=== PATIENT | male | born 1970 | race Caucasian/White ===

== ENCOUNTER 2023-12-03 09:02 | Emergency (ER) | payer OTHER ==
[2023-12-03] MEDS ORDERED: NITRO-BID 2% UD PACKETS ONE (09:04)
[2023-12-03] MEDS ORDERED: Furosemide 100mg/10 ml Vial ONE (09:04)
[2023-12-03] MEDS ORDERED: Zofran 4 MG/2 ML VIAL ONE (09:11)
[2023-12-03] MEDS: NITRO-BID 2% UD PACKETS TOP ONE (09:12)
[2023-12-03] MEDS ORDERED: DUONEB 0.5-3 MG/3 ml Neb IH ONE (09:13)
[2023-12-03] MEDS: Furosemide 100mg/10 ml Vial IV ONE (09:13)
[2023-12-03] MEDS: Zofran 4 MG/2 ML VIAL IV ONE (09:13)
[2023-12-03] MEDS: DUONEB 0.5-3 MG/3 ml Neb IH ONE (09:14)
[2023-12-03 09:36] VITALS: TEMP 96.2
--- NOTE | 2023-12-03 09:37 | XRAY ---
Indication: Short of breath. Comparison: None Portable apical lordotic chest demonstrates diffuse bilateral patchy interstitial alveolar opacities right greater than left with tiny bibasilar effusions. Heart not enlarged. Bony thorax intact with osteopenia and sternotomy wires.
[2023-12-03 09:39] LABS: A-aADO2 246; ABG POTASSIUM 4.9 (3.5-5.1); ABG SITE LEFT BRACHIAL; ARTERIAL BLOOD GAS BASE EXCESS -2.9 (-2.0-2.0); ARTERIAL BLOOD GAS FIO2 70 %; ARTERIAL BLOOD GAS PCO2 41 mmHg (35-45); ARTERIAL BLOOD GAS PO2 202 mmHg (75-100); ARTERIAL BLOOD GAS VENT MODE BiPAP; ARTERIAL BLOOD GAS pH 7.35 (7.35-7.45); BIPAP(E) 6; BIPAP(I) 14; CARBOXYHEMOGLOBIN 1.8 % THgb (0.0-6.9); HCO3- 22.6 (22-28); HGB O2 SAT 96.5 g/dF (94-100); Methhemoglobin 0.7 % (1.4-1.5); paO2 pAO1 0.45
[2023-12-03 09:39] LABS: Absolute Neutrophil Ct (ANC) 6.42 x10^3/uL (1.78-5.38); BASOPHIL % 0.8 % (0.2-1.2); Eosinophil % 5.9 % (0.8-7.0); Eosinophil (Absolute #) 0.73 x10^3/uL (0.04-0.54); Hematocrit 49.8 % (40.1-51.0); Hemoglobin 15.2 g/dL (13.7-17.5); IMMATURE GRAN # 0.08 x10^3u/L (0.001-0.031); IMMATURE GRAN % 0.6 % (0.001-0.429); Lymphocyte (Absolute #) 3.64 x10^3/uL (1.32-3.57); Lymphocytes % 29.6 % (21.8-53.1); Mean Cell Volume 81.8 fL (79.0-92.2); Mean Corpuscular Hgb Concent. 30.5 g/dL (32.3-36.5); Mean Platelet Volume 12.9 fL (9.4-12.4); Monocyte (Absolute #) 1.34 x10^3/uL (0.30-0.82); Monocytes % 10.9 % (5.3-12.2); Neutrophil % 52.2 % (34.0-67.9); Platelet Count 201 x10^3/uL (163-337); Red Blood Count 6.09 x10^6/uL (4.63-6.08); Red Cell Distribution Width 16.4 % (11.6-14.4); White Blood Count 12.3 x10^3/uL (4.23-9.07)
--- NOTE | 2023-12-03 10:00 | ERPHSYRPT ---
- History of Present Illness Time Seen by Provider: 12/03/23 09:03 Source: patient Exam Limitations: clinical condition Patient Subjective Stated Complaint: SOB Triage Nursing Assessment: Patient brought into ED per w/c and transferred to bed per self. Patient A+O X 3. Patient's skin flushed and diaphoretic. Patient complains of SOB. Patient has increased work of breathing and moist cough noted. Lungs coarse and crackles. Initial O2 noted to be 75% on room air. Patient denies pain or discomfort. Patient placed on non rebreather at 15 liters and brought O2 to 96%. RT at bedside and placed patient on bipap. Physician History: 53-year-old male with history of coronary artery disease status post CABG, congestive heart failure, diabetes mellitus, hypertension, hyperlipidemia presented in the ER with sudden severe shortness of breath started almost 10 minutes prior to arrival while he was driving. Patient reports having cough congestion off and on for last couple of weeks. Patient oxygen saturation was 75% on room air, placed on nonrebreather and improved and low 90s. Patient has coarse crackles all over especially on the right side. Patient denies any chest pain and reports having similar symptoms couple of times with flash pulmonary edema. Has bilateral lower extremity swelling despite taking Lasix. No fever or chills reported. Seems like patient has CHF exacerbation/flash pulmonary edema. Placed on BiPAP, Nitropaste and 60 of IV Lasix along with DuoNeb with some improvement. Allergies/Adverse Reactions: No Known Drug Allergies Allergy (Unverified 12/03/23 09:39) Home Medications: Aspirin EC 81 mg [Ecotrin 81 mg] 1 tab PO DAILY 12/03/23 [History] Atorvastatin Calcium [Lipitor 20MG Tablet] 1 tab PO HS 12/03/23 [History] Empagliflozin [Jardiance] 25 mg PO DAILY 12/03/23 [History] Furosemide 40 mg [Lasix 40 MG] 1 tab PO DAILY 12/03/23 [History] Metformin HCl [Metformin ER Osmotic] 1 tab PO BID 12/03/23 [History] Metoprolol Succinate 50 mg [Toprol Xl 50 MG] 1 tab PO DAILY 12/03/23 [History] Potassium Chloride [Klor-Con 10] 1 tab PO DAILY 12/03/23 [History] Sacubitril/Valsartan [Entresto 24 mg-26 mg Tablet] 1 tab PO BID 12/03/23 [History] Hx Influenza Vaccination/Date Given: Yes Hx Pneumococcal Vaccination/Date Given: No Immunizations Up to Date: Yes Travel Risk - International Travel Have you traveled outside of the country in past 3 weeks: No - Emerging Infectious Disease Are you exhibiting symptoms associated with any current EIDs: No - Review of Systems Constitutional: Fatigue, Weakness Eyes: No Symptoms Ears, Nose, & Throat: No Symptoms Respiratory: Cough, Dyspnea, Dyspnea on Exertion (BARRETT) Cardiac: Edema Abdominal/Gastrointestinal: No Symptoms Genitourinary Symptoms: No Symptoms Musculoskeletal: No Symptoms Skin: No Symptoms Neurological: No Symptoms Psychological: No Symptoms Endocrine: No Symptoms Hematologic/Lymphatic: No Symptoms Immunological/Allergic: No Symptoms - Past Medical History Pertinent Past Medical History: Yes Neurological History: No Pertinent History ENT History: No Pertinent History Cardiac History: High Cholesterol, Hypertension, Myocardial Infarction (HI) Respiratory History: No Pertinent History Endocrine Medical History: Diabetes Type II Musculoskeletal History: No Pertinent History GI Medical History: No Pertinent History History: No Pertinent History Psycho-Social History: No Pertinent History Male Reproductive Disorders: No Pertinent History - Past Surgical History Past Surgical History: Yes Neuro Surgical History: No Pertinent History Cardiac: CABG Respiratory: No Pertinent History Gastrointestinal: No Pertinent History Genitourinary: No Pertinent History Musculoskeletal: No Pertinent History Male Surgical History: No Pertinent History Other Surgical History: 5 heart bypass in 2022 - Social History Smoking Status: Never smoker Exposure to second hand smoke: No Drug Use: none - Social Determinants of Health Will the patient participate in the screening: Yes Do you worry about a steady place to live?: No Do you have any problems with any of the following?: No known problems In the past 12 months,have you had to go without utilities?: No Transportation Issues: No Has anyone in your support network made you feel unsafe?: No Have you or anyone in your house had to go without enough: No - Nursing Vital Signs Nursing Vital Signs: Initial Vital Signs Pulse Rate 111 H 12/03/23 09:02 Respiratory Rate 43 H 12/03/23 09:02 Blood Pressure 153/116 12/03/23 09:02 O2 Sat by Pulse Oximetry 99 12/03/23 09:02 Pain Scale Pain Intensity 0 - Physical Exam General Appearance: moderate distress Eye Exam: PERRL/EOMI Ears, Nose, Throat Exam: hearing grossly normal Neck Exam: normal inspection, non-tender, supple, full range of motion Respiratory Exam: respiratory distress, diminished breath sounds, accessory musc le use, crackles/rales, rhonchi Cardiovascular/Chest Exam: normal heart sounds, edema, tachycardia Abdominal/Gastrointestinal Exam: soft, normal bowel sounds, No tenderness Extremity Exam: non-tender Neurologic Exam: alert, oriented x 3, cooperative Skin Exam: normal color SpO2 Interpretation: hypoxic, O2 applied SpO2: 99 O2 Delivery: BiPap - Course EKG Interpreted by Me: RATE (110), Sinus Tach, NORMAL AXIS, NORMAL INTERVALS, Other (Mild ST depression in inferior/lateral leads with T wave inversions.) Ordered Tests: Medication Summary Discontinued Medications Generic Name Dose Route Start Last Admin Trade Name Freq PRN Reason Stop Dose Admin Albuterol/Ipratropium 3 ml 12/03/23 09:06 12/03/23 09:14 Ipratropium/Albuterol Sulfate 3 Ml Ampul.Neb IH 12/03/23 09:07 3 ml STAT ONE Administration Albuterol/Ipratropium Confirm 12/03/23 09:13 Ipratropium/Albuterol Sulfate 3 Ml Ampul.Neb Administered 12/03/23 09:14 Dose 3 ml IH .STK-MED ONE Furosemide Confirm 12/03/23 09:04 Furosemide 100 Mg/10 Ml Vial Administered 12/03/23 09:05 Dose 100 mg .ROUTE .STK-MED ONE Furosemide 60 mg 12/03/23 09:10 12/03/23 09:13 Furosemide 100 Mg/10 Ml Vial IV 12/03/23 09:11 60 mg STAT ONE Administration Ceftriaxone Sodium 2 gm in 100 mls @ 200 mls/hr 12/03/23 09:42 12/03/23 10:37 Rocephin 2 Gm/100 Ml Nacl IV 12/03/23 10:11 Infused STAT ONE Infusion Azithromycin 500 mg in 250 mls @ 250 mls/hr 12/03/23 09:42 12/03/23 11:19 Zithromax 500 Mg/ 250 Ml Nacl Premix IV 12/03/23 10:41 Infused STAT STA Infusion Azithromycin Confirm 12/03/23 10:04 Zithromax 500 Mg/ 250 Ml Nacl Premix Administered 12/03/23 10:05 Dose 500 mg in 250 mls @ ud IV .STK-MED ONE Ceftriaxone Sodium Confirm 12/03/23 10:04 Rocephin 2 Gm/100 Ml Nacl Administered 12/03/23 10:05 Dose 2 gm in 100 mls @ ud IV .STK-MED ONE Sodium Chloride 250 mls @ 250 mls/hr 12/03/23 11:30 12/03/23 11:45 Sodium Chloride 0.9% 250 Ml IV 12/03/23 12:29 250 mls/hr .Q1H [place] Administration Sodium Chloride Confirm 12/03/23 11:44 Sodium Chloride 0.9% 250 Ml Administered 12/03/23 11:45 Dose 250 mls @ IV .STK-MED ONE Nitroglycerin Confirm 12/03/23 09:04 Nitroglycerin 1 Gm Packet Administered 12/03/23 09:05 Dose 1 gm .ROUTE .STK-MED ONE Nitroglycerin 1 gm 12/03/23 09:10 12/03/23 09:12 Nitroglycerin 1 Gm Packet TOP 12/03/23 09:11 1 gm STAT ONE Administration Ondansetron HCl Confirm 12/03/23 09:11 Ondansetron Hcl 4 Mg/2 Ml Vial Administered 12/03/23 09:12 Dose 4 mg .ROUTE .STK-MED ONE Ondansetron HCl 4 mg 12/03/23 09:10 12/03/23 09:13 Ondansetron Hcl 4 Mg/2 Ml Vial IV 12/03/23 09:11 4 mg STAT ONE Administration Lab/Rad Data: Laboratory Result Diagrams 12/03/23 09:20 12/03/23 09:20 Laboratory Results 12/03/23 12/03/23 12/03/23 Range/Units 09:30 09:25 09:25 WBC (4.23-9.07) x10^3/uL RBC (4.63-6.08) x10^6/uL Hgb (13.7-17.5) g/dL Hct (40.1-51.0) % MCV (79.0-92.2) fL MCH (25.7-32.2) pg MCHC (32.3-36.5) g/dL RDW (11.6-14.4) % Plt Count (163-337) x10^3/uL MPV (9.4-12.4) fL Gran % (34.0-67.9) % Immature Gran % (Auto) (0.001-0.429) % Nucleat RBC Rel Count (0.00-0.2) % Eos # (Auto) (0.04-0.54) x10^3/uL Immature Gran # (Auto) (0.001-0.031) x10^3u/L Absolute Lymphs (auto) (1.32-3.57) x10^3/uL Absolute Monos (auto) (0.30-0.82) x10^3/uL Absolute Nucleated RBC (0.00-0.012) x10^3u/L Lymphocytes % (21.8-53.1) % Monocytes % (5.3-12.2) % Eosinophils % (0.8-7.0) % Basophils % (0.2-1.2) % Absolute Granulocytes (1.78-5.38) x10^3/uL Basophils # (0.01-0.08) x10^3/uL Puncture Site LEFT BRACHIAL pCO2 41 (35-45) mmHg pO2 202 H* (75-100) mmHg Base Excess -2.9 L (-2.0-2.0) O2 Saturation 96.5 (94-100) g/dF ABG pH 7.35 (7.35-7.45) ABG HCO3 22.6 (22-28) ABG O2 Sat (Measured) 99.0 (95-100) % Jose Test NOT APPLICABLE A-a Gradient 246 a/A Ratio 0.45 Hemoglobin 16.0 Carboxyhemoglobin 1.8 (0.0-6.9) % THgb Methemoglobin 0.7 L (1.4-1.5) % Temperature 37.0 C POC O2 Flow Rate 70 % Vent Mode BiPAP Inspiratory BiPAP 14 Expiratory BiPAP 6 Sodium (135-145) mmol/L Potassium 4.9 (3.5-5.1) mmol/L Chloride (98-107) mmol/L Carbon Dioxide (22-30) mmol/L Anion Gap (5-15) MEQ/L BUN (9-20) mg/dL Creatinine (0.66-1.25) mg/dL Estimated GFR ML/MIN Glucose (74-106) mg/dL Lactic Acid 3.0 H (0.4-2.0) Calcium (8.4-10.2) mg/dL Magnesium (1.6-2.3) mg/dL Total Bilirubin (0.2-1.3) mg/dL AST (17-59) U/L ALT (0-50) U/L Alkaline Phosphatase (38-126) U/L Troponin I (0.000-0.033) ng/mL NT-Pro-B Natriuret Pep (<300) pg/mL Serum Total Protein (6.3-8.2) g/dL Albumin (3.5-5.0) g/dL Influenza Type A Ag NEGATIVE (NEGATIVE) Influenza Type B Ag NEGATIVE (NEGATIVE) RSV (PCR) NEGATIVE (NEGATIVE) SARS-CoV-2 (PCR) NEGATIVE (NEGATIVE) Slides for Path Review 12/03/23 12/03/23 12/03/23 Range/Units 09:20 09:20 09:20 WBC 12.3 H (4.23-9.07) x10^3/uL RBC 6.09 H (4.63-6.08) x10^6/uL Hgb 15.2 (13.7-17.5) g/dL Hct 49.8 (40.1-51.0) % MCV 81.8 (79.0-92.2) fL MCH 25.0 L (25.7-32.2) pg MCHC 30.5 L (32.3-36.5) g/dL RDW 16.4 H (11.6-14.4) % Plt Count 201 (163-337) x10^3/uL MPV 12.9 H (9.4-12.4) fL Gran % 52.2 (34.0-67.9) % Immature Gran % (Auto) 0.6 H (0.001-0.429) % Nucleat RBC Rel Count 0.0 (0.00-0.2) % Eos # (Auto) 0.73 H (0.04-0.54) x10^3/uL Immature Gran # (Auto) 0.08 H (0.001-0.031) x10^3u/L Absolute Lymphs (auto) 3.64 H (1.32-3.57) x10^3/uL Absolute Monos (auto) 1.34 H (0.30-0.82) x10^3/uL Absolute Nucleated RBC 0.00 (0.00-0.012) x10^3u/L Lymphocytes % 29.6 (21.8-53.1) % Monocytes % 10.9 (5.3-12.2) % Eosinophils % 5.9 (0.8-7.0) % Basophils % 0.8 (0.2-1.2) % Absolute Granulocytes 6.42 H (1.78-5.38) x10^3/uL Basophils # 0.10 H (0.01-0.08) x10^3/uL Puncture Site pCO2 (35-45) mmHg pO2 (75-100) mmHg Base Excess (-2.0-2.0) O2 Saturation (94-100) g/dF ABG pH (7.35-7.45) ABG HCO3 (22-28) ABG O2 Sat (Measured) (95-100) % Jose Test A-a Gradient a/A Ratio Hemoglobin Carboxyhemoglobin (0.0-6.9) % THgb Methemoglobin (1.4-1.5) % Temperature C POC O2 Flow Rate % Vent Mode Inspiratory BiPAP Expiratory BiPAP Sodium 140 (135-145) mmol/L Potassium 5.0 (3.5-5.1) mmol/L Chloride 105 (98-107) mmol/L Carbon Dioxide 19 L (22-30) mmol/L Anion Gap 21.5 H (5-15) MEQ/L BUN 25 H (9-20) mg/dL Creatinine 1.15 (0.66-1.25) mg/dL Estimated GFR 75.2 ML/MIN Glucose 279 H (74-106) mg/dL Lactic Acid (0.4-2.0) Calcium 9.1 (8.4-10.2) mg/dL Magnesium 2.1 (1.6-2.3) mg/dL Total Bilirubin 0.40 (0.2-1.3) mg/dL AST 31 (17-59) U/L ALT 33 (0-50) U/L Alkaline Phosphatase 124 (38-126) U/L Troponin I < 0.012 (0.000-0.033) ng/mL NT-Pro-B Natriuret Pep 405 (<300) pg/mL Serum Total Protein 7.7 (6.3-8.2) g/dL Albumin 4.6 (3.5-5.0) g/dL Influenza Type A Ag (NEGATIVE) Influenza Type B Ag (NEGATIVE) RSV (PCR) (NEGATIVE) SARS-CoV-2 (PCR) (NEGATIVE) Slides for Path Review YES - Progress Progress: improved, re-examined Air Movement: fair Progress Note: 12/03/23 09:59 53-year-old is evaluated in the ER for sudden worsening shortness of breath with hypoxia saturation of 75% on room air. Placed on nonrebreather followed by BiPAP. Patient has coarse crackles. Given Lasix, Nitropaste and DuoNeb, on reevaluation feeling somewhat better. Patient chest x-ray showed bilateral patchy interstitial opacities with bibasilar effusion, given a dose of Rocephin and Zithromax as well. Has a lactate of 3.0. White count of 12. EKG is sinus tach with no ST elevations. 12/03/23 10:21 Chemistries showed glucose of 279 with a gap of 21 and a bicarb of 19 and ABG showed a pH of 7.35. I do not think patient is in DKA. Patient on reevaluation is much improved after diuresis. He still is on BiPAP but much improved work of breathing. Patient want to go to [facility] and I have discussed with Dr. Andrea Reilly, ER physician, reviewed history, workup and agreed with transfer. Blood Culture(s) Obtained: Yes Antibiotics given: Yes Counseled pt/family regarding: lab results, diagnosis, need for follow-up, rad results Medical Desision Making - Independent Historian Additional History obtained from: Spouse - Discussion of managment Care discussed with:: on-call "doc" (Dr. Reilly [facility] ER) Reviewed:: Test results Agreed on:: Treatment plan Will see patient: in ED - Diagnostic Testing Diagnostic test were ordered, analyzed, and reviewed by me: Yes Radiological Interpretation: Interpreted by me, Reviewed by me - Risk of complications The pt has a mod risk of morbidity or mortality based on: Need for prescription drug management The pt has a high risk of morbidity or mortality based on: Drug therapy requiring intensive monitoring for toxicity, Decision regarding hospitilization or escalation of hosp level of care - Departure Departure Disposition: Transfer Clinical Impression: Acute exacerbation of congestive heart failure, Pneumonia Respiratory failure Qualifiers: Chronicity: acute Respiratory failure complication: hypoxia Qualified Code(s): J96.01 - Acute respiratory failure with hypoxia Condition: Stable Critical Care Time: Yes Critical Care Time(excluding separately billable procedures): Critical 30-74 mins Referrals: VANDANA ROWE MD [Primary Care Provider] - Follow up/PCP as directed Instructions: Heart Failure
[2023-12-03] MEDS ORDERED: ROCEPHIN 2 GM/100 ML NACL 2 GM/100 ML IVPB IV ONE (10:04)
[2023-12-03] MEDS ORDERED: Zithromax 500 MG/ 250 ML NaCl Premix 500 MG/250 ML IVPB IV ONE (10:04)
[2023-12-03] MEDS: ROCEPHIN 2 GM/100 ML NACL 2 GM/100 ML IVPB IV ONE (10:05)
[2023-12-03 10:06] LABS: ALBUMIN 4.6 g/dL (3.5-5.0); ANION GAP 21.5 MEQ/L (5-15); BILIRUBIN,TOTAL 0.4 mg/dL (0.2-1.3); Calcium 9.1 mg/dL (8.4-10.2); Creatinine 1 1.15 mg/dL (0.66-1.25); EST GLOMERULAR FILTRATION RATE 75.2 ML/MIN; MAGNESIUM 2.1 mg/dL (1.6-2.3); Total Protein 7.7 g/dL (6.3-8.2)
[2023-12-03] MEDS: Zithromax 500 MG/ 250 ML NaCl Premix 500 MG/250 ML IVPB IV STA (10:08)
[2023-12-03 10:11] LABS: Slide Review 1 YES
[2023-12-03 10:21] LABS: INFLUENZA A NEGATIVE (NEGATIVE); INFLUENZA B NEGATIVE (NEGATIVE); RESPIRATORY SYNCTIAL VIRUS NEGATIVE (NEGATIVE); SARS-CoV-2 Xpert Express NEGATIVE (NEGATIVE)
[2023-12-03] MEDS ORDERED: Sodium Chloride 0.9% 250 ML 250 ML IV ONE (11:44)
[2023-12-03] MEDS: Sodium Chloride 0.9% 250 ML 250 ML IV SCH (11:45)
[2023-12-03 12:16] VITALS: O2SAT 99
[2023-12-03 12:24] VITALS: BP 92/68; PULSE 83; RESP 25
== END 2023-12-03 12:15 | disposition short-term general hospital (02) ==
LOC: ED 09:02
DX: I11.0 Hypertensive heart disease with heart failure (principal); I50.9 Heart failure, unspecified; J18.9 Pneumonia, unspecified organism; J96.01 Acute respiratory failure with hypoxia; R05.1 Acute cough; M79.89 Other specified soft tissue disorders; E11.9 Type 2 diabetes mellitus without complications; E78.5 Hyperlipidemia, unspecified; Z79.84 Long term (current) use of oral hypoglycemic drugs; Z79.899 Other long term (current) drug therapy
CPT/HCPCS: 0241U; 36000; 36415; 36600; 71045; 80053; 82375; 82803; 83605; 83735; 83880; 84484; 85025; 87040; 93005; 93041; 94002; 94640; 96365; 96368; 96374; 96375; 99285; 99291; J0456; J0696; J1940; J2405; A9270-GY

== ENCOUNTER 2024-03-31 23:15 | Observation (INO) | payer OTHER ==
[2024-03-31] MEDS ORDERED: Lasix 40 MG/4 ML ONE (23:20)
[2024-03-31] MEDS: Lasix 40 MG/4 ML IV ONE (23:21)
[2024-03-31] MEDS ORDERED: NITRO-BID 2% UD PACKETS ONE (23:25)
[2024-03-31] MEDS: NITRO-BID 2% UD PACKETS TOP ONE (23:26)
[2024-03-31] MEDS ORDERED: Zofran 4 MG/2 ML VIAL ONE (23:27)
[2024-03-31] MEDS: Zofran 4 MG/2 ML VIAL IV ONE (23:30)
--- NOTE | 2024-03-31 23:49 | ERPHSYRPT ---
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 Patient did some exertional work and was worked up. Patient started to have sudden worsening shortness of breath coughing up frothy yellow sputum and sweating while standing in the ER. Patient also started to have loud crackles. Reports increasing cough for the last 2 to 3 days and does have bilateral lower extremity swelling which is not any worse than usual. Patient did have chemical stress test done at [facility] by Dr. Noonan earlier today. Denies any fever or chills. Reports symptoms similar to previous with flash pulmonary edema. Patient is placed on nonrebreather immediately followed by CPAP. Given IV Lasix and Nitropaste with improved work of breathing. EKG showed sinus tach with PVC but no acute ST elevations. Allergies/Adverse Reactions: No Known Drug Allergies Allergy (Unverified 12/03/23 09:39) Home Medications: Aspirin EC 81 mg [Ecotrin 81 mg] 1 tab PO DAILY 12/03/23 [History] Atorvastatin Calcium [Lipitor 20MG Tablet] 1 tab PO HS 12/03/23 [History] Empagliflozin [Jardiance] 25 mg PO DAILY 12/03/23 [History] Furosemide 40 mg [Lasix 40 MG] 1 tab PO DAILY 12/03/23 [History] Metformin HCl [Metformin ER Osmotic] 1 tab PO BID 12/03/23 [History] Metoprolol Succinate 50 mg [Toprol Xl 50 MG] 1 tab PO DAILY 12/03/23 [History] Potassium Chloride [Klor-Con 10] 1 tab PO DAILY 12/03/23 [History] Sacubitril/Valsartan [Entresto 24 mg-26 mg Tablet] 1 tab PO BID 12/03/23 [History] Hx Influenza Vaccination/Date Given: Yes Hx Pneumococcal Vaccination/Date Given: No Travel Risk - Emerging Infectious Disease Are you exhibiting symptoms associated with any current EIDs: No - Review of Systems Constitutional: Fatigue Eyes: No Symptoms Ears, Nose, & Throat: No Symptoms Respiratory: Cough, Dyspnea, Dyspnea on Exertion (BARRETT) Cardiac: Edema, Orthopnea Abdominal/Gastrointestinal: No Symptoms Genitourinary Symptoms: No Symptoms Psychological: No Symptoms Endocrine: No Symptoms Hematologic/Lymphatic: No Symptoms - Past Medical History Pertinent Past Medical History: Yes Neurological History: No Pertinent History ENT History: No Pertinent History Cardiac History: High Cholesterol, Hypertension, Myocardial Infarction (CA) Respiratory History: No Pertinent History Endocrine Medical History: Diabetes Type II Musculoskeletal History: No Pertinent History GI Medical History: No Pertinent History History: No Pertinent History Psycho-Social History: No Pertinent History Male Reproductive Disorders: No Pertinent History - Past Surgical History Past Surgical History: Yes Neuro Surgical History: No Pertinent History Cardiac: CABG Respiratory: No Pertinent History Gastrointestinal: No Pertinent History Genitourinary: No Pertinent History Musculoskeletal: No Pertinent History Male Surgical History: No Pertinent History Other Surgical History: 5 heart bypass in [facility] 2022 - Social History Smoking Status: Never smoker Exposure to second hand smoke: No Drug Use: none - Social Determinants of Health Will the patient participate in the screening: Yes Do you worry about a steady place to live?: No In the past 12 months,have you had to go without utilities?: No Transportation Issues: No Has anyone in your support network made you feel unsafe?: No Have you or anyone in your house had to go without enough: No - Nursing Vital Signs Nursing Vital Signs: Initial Vital Signs Temperature 97.1 F 03/31/24 23:32 Pulse Rate 118 H 03/31/24 23:32 Respiratory Rate 42 H 03/31/24 23:32 Blood Pressure 152/111 03/31/24 23:32 O2 Sat by Pulse Oximetry 85 L 03/31/24 23:32 Pain Scale Pain Intensity 0 - Physical Exam General Appearance: moderate distress, alert Eye Exam: PERRL/EOMI Ears, Nose, Throat Exam: hearing grossly normal, pharyngeal erythema Neck Exam: normal inspection, non-tender, supple, full range of motion Respiratory Exam: respiratory distress, diminished breath sounds, accessory muscle use, crackles/rales Cardiovascular/Chest Exam: edema, tachycardia Abdominal/Gastrointestinal Exam: soft, normal bowel sounds, tenderness Extremity Exam: non-tender, normal range of motion Neurologic Exam: alert, oriented x 3, cooperative, 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 II-XII nml as tested Skin Exam: normal color SpO2 Interpretation: O2 applied SpO2: 100 O2 Delivery: CPAP - Course EKG Interpreted by Me: RATE ([id number]), Sinus Tach, NORMAL AXIS, Q-wave, Non-specific ST Changes Ordered Tests: Active Orders 24 hr Category Date Time Status Cytology Manager STAT Care 03/31/24 23:17 Active EKG-ER Only STAT Care 03/31/24 23:17 Active IV Insertion STAT Care 03/31/24 23:17 Active Oxygen-ED Only NON-REBREATHER 100% Care 03/31/24 23:17 Active CHEST 1 VIEW (PORTABLE) Stat Exams 03/31/24 23:39 Completed BLOOD CULTURE Stat Lab 03/31/24 23:53 Ordered CBC W DIFF Stat Lab 03/31/24 23:53 Completed CMP Stat Lab 03/31/24 23:53 Completed Lactic Acid Stat Lab 03/31/24 23:40 Completed MAGNESIUM Stat Lab 03/31/24 23:53 Completed NT PRO BNPII Stat Lab 03/31/24 23:53 Completed TROPONIN Q4H Lab 03/31/24 23:53 Completed TROPONIN Q4H Lab 04/01/24 03:30 Ordered TROPONIN Q4H Lab 04/01/24 07:30 Ordered BiPap/CPAP STAT RT 03/31/24 23:55 Active Medication Summary Generic Name Dose Route Start Last Admin Trade Name Freq PRN Reason Stop Dose Admin Ceftriaxone Sodium 2 gm in 100 mls @ 200 mls/hr 04/01/24 00:47 04/01/24 00:50 Rocephin 2 Gm/100 Ml Nacl IV 04/01/24 01:16 200 mls/hr STAT ONE 200 mls/hr Administration Azithromycin 500 mg in 250 mls @ 250 mls/hr 04/01/24 00:47 04/01/24 00:50 Zithromax 500 Mg/ 250 Ml Nacl Premix IV 04/01/24 01:46 250 mls/hr STAT STA 250 mls/hr Administration Discontinued Medications Generic Name Dose Route Start Last Admin Trade Name Freq PRN Reason Stop Dose Admin Albuterol/Ipratropium Confirm 04/01/24 00:31 Ipratropium/Albuterol Sulfate 3 Ml Ampul.Neb Administered 04/01/24 00:32 Dose 3 ml IH .STK-MED ONE Furosemide 40 mg 03/31/24 23:17 03/31/24 23:21 Furosemide 40 Mg/4 Ml Vial IV 03/31/24 23:18 40 mg STAT ONE Administration Furosemide Confirm 03/31/24 23:20 Furosemide 40 Mg/4 Ml Vial Administered 03/31/24 23:21 Dose 40 mg .ROUTE .STK-MED ONE Nitroglycerin 0.5 gm 03/31/24 23:24 03/31/24 23:26 Nitroglycerin 1 Gm Packet TOP 03/31/24 23:25 0.5 gm STAT ONE Administration Nitroglycerin Confirm 03/31/24 23:25 Nitroglycerin 1 Gm Packet Administered 03/31/24 23:26 Dose 1 gm .ROUTE .STK-MED ONE Ondansetron HCl 4 mg 03/31/24 23:30 03/31/24 23:30 Ondansetron Hcl 4 Mg/2 Ml Vial IV 03/31/24 23:31 4 mg STAT ONE Administration Ondansetron HCl Confirm 03/31/24 23:27 Ondansetron Hcl 4 Mg/2 Ml Vial Administered 03/31/24 23:28 Dose 4 mg .ROUTE .STK-MED ONE Lab/Rad Data: Laboratory Result Diagrams 03/31/24 23:53 03/31/24 23:53 Laboratory Results 03/31/24 03/31/24 03/31/24 Range/Units 23:53 23:53 23:53 WBC (4.23-9.07) x10^3/uL RBC (4.63-6.08) x10^6/uL Hgb (13.7-17.5) g/dL Hct (40.1-51.0) % MCV (79.0-92.2) fL MCH (25.7-32.2) pg MCHC (32.3-36.5) g/dL RDW (11.6-14.4) % Plt Count (163-337) x10^3/uL MPV (9.4-12.4) fL Gran % (34.0-67.9) % Immature Gran % (Auto) (0.001-0.429) % Nucleat RBC Rel Count (0.00-0.2) % Eos # (Auto) (0.04-0.54) x10^3/uL Immature Gran # (Auto) (0.001-0.031) x10^3u/L Absolute Lymphs (auto) (1.32-3.57) x10^3/uL Absolute Monos (auto) (0.30-0.82) x10^3/uL Absolute Nucleated RBC (0.00-0.012) x10^3u/L Lymphocytes % (21.8-53.1) % Monocytes % (5.3-12.2) % Eosinophils % (0.8-7.0) % Basophils % (0.2-1.2) % Absolute Granulocytes (1.78-5.38) x10^3/uL Basophils # (0.01-0.08) x10^3/uL Sodium 137 (135-145) mmol/L Potassium 3.9 (3.5-5.1) mmol/L Chloride 101 (98-107) mmol/L Carbon Dioxide 22 (22-30) mmol/L Anion Gap 17.9 H (5-15) MEQ/L BUN 22 H (9-20) mg/dL Creatinine 1.29 H (0.66-1.25) mg/dL Estimated GFR 65.5 ML/MIN Glucose 270 H (74-106) mg/dL Lactic Acid (0.4-2.0) Calcium 9.2 (8.4-10.2) mg/dL Magnesium 2.1 (1.6-2.3) mg/dL Total Bilirubin 0.50 (0.2-1.3) mg/dL AST 32 (17-59) U/L ALT 25 (0-50) U/L Alkaline Phosphatase 113 (38-126) U/L Troponin I < 0.012 (0.000-0.033) ng/mL NT-Pro-B Natriuret Pep 381 (<300) pg/mL Serum Total Protein 7.8 (6.3-8.2) g/dL Albumin 4.6 (3.5-5.0) g/dL Influenza Type A Ag NEGATIVE (NEGATIVE) Influenza Type B Ag NEGATIVE (NEGATIVE) RSV (PCR) NEGATIVE (NEGATIVE) SARS-CoV-2 (PCR) NEGATIVE (NEGATIVE) 03/31/24 03/31/24 Range/Units 23:53 23:40 WBC 10.1 H (4.23-9.07) x10^3/uL RBC 6.04 (4.63-6.08) x10^6/uL Hgb 15.3 (13.7-17.5) g/dL Hct 49.0 (40.1-51.0) % MCV 81.1 (79.0-92.2) fL MCH 25.3 L (25.7-32.2) pg MCHC 31.2 L (32.3-36.5) g/dL RDW 16.1 H (11.6-14.4) % Plt Count 205 (163-337) x10^3/uL MPV 12.4 (9.4-12.4) fL Gran % 52.0 (34.0-67.9) % Immature Gran % (Auto) 0.3 (0.001-0.429) % Nucleat RBC Rel Count 0.0 (0.00-0.2) % Eos # (Auto) 0.45 (0.04-0.54) x10^3/uL Immature Gran # (Auto) 0.03 (0.001-0.031) x10^3u/L Absolute Lymphs (auto) 3.21 (1.32-3.57) x10^3/uL Absolute Monos (auto) 1.08 H (0.30-0.82) x10^3/uL Absolute Nucleated RBC 0.00 (0.00-0.012) x10^3u/L Lymphocytes % 31.7 (21.8-53.1) % Monocytes % 10.7 (5.3-12.2) % Eosinophils % 4.4 (0.8-7.0) % Basophils % 0.9 (0.2-1.2) % Absolute Granulocytes 5.26 (1.78-5.38) x10^3/uL Basophils # 0.09 H (0.01-0.08) x10^3/uL Sodium (135-145) mmol/L Potassium (3.5-5.1) mmol/L Chloride (98-107) mmol/L Carbon Dioxide (22-30) mmol/L Anion Gap (5-15) MEQ/L BUN (9-20) mg/dL Creatinine (0.66-1.25) mg/dL Estimated GFR ML/MIN Glucose (74-106) mg/dL Lactic Acid 3.4 H (0.4-2.0) Calcium (8.4-10.2) mg/dL Magnesium (1.6-2.3) mg/dL Total Bilirubin (0.2-1.3) mg/dL AST (17-59) U/L ALT (0-50) U/L Alkaline Phosphatase (38-126) U/L Troponin I (0.000-0.033) ng/mL NT-Pro-B Natriuret Pep (<300) pg/mL Serum Total Protein (6.3-8.2) g/dL Albumin (3.5-5.0) g/dL Influenza Type A Ag (NEGATIVE) Influenza Type B Ag (NEGATIVE) RSV (PCR) (NEGATIVE) SARS-CoV-2 (PCR) (NEGATIVE) - Progress Progress: improved, re-examined Air Movement: fair Progress Note: 04/01/24 00:47 53-year-old with history of CAD with CABG, CHF, hypertension, diabetes is evaluated in the ER for sudden worsening shortness of breath with coarse crackles all over. Patient was in mild to moderate respiratory distress. He is placed on nonrebreather followed by CPAP, given Lasix and Nitropaste, on reev aluation he is turned around pretty quickly and has improved work of breathing. He is taken off of CPAP and currently on 2 L oxygen. Chest x-ray showed bilateral airspace disease/consolidations, given a dose of antibiotic. Workup showed white count of 10, lactate of 3.4, negative initial troponins and BNP in 300s. He is also given a breathing treatment. Still have some crackling and minimal wheezing. I believe patient has a combination of CHF exacerbation and pneumonia. Discussed the results of workup and recommended admission which patient/family understand. Discussed with Dr. Cervantes patient is being admitted. Blood Culture(s) Obtained: Yes Antibiotics given: Yes Discussed with : Jocy Will see patient in: hospital (observation) Counseled pt/family regarding: lab results, diagnosis, rad results Medical Desision Making - Discussion of managment Care discussed with:: hospitalist (Dr. Lindsay) Reviewed:: Test results Agreed on:: Treatment plan, place in obs Will see patient: in hospital - Diagnostic Testing Diagnostic test were ordered, analyzed, and reviewed by me: Yes Radiological Interpretation: Interpreted by me, Reviewed by me, Teleradiologist Report - Risk of complications The pt has a mod risk of morbidity or mortality based on: Need for prescription drug management The pt has a high risk of morbidity or mortality based on: Decision regarding hospitilization or escalation of hosp level of care - Departure Departure Disposition: Observation Clinical Impression: Acute exacerbation of congestive heart failure, Respiratory failure, Pneumonia Condition: Stable Critical Care Time: Yes Critical Care Time(excluding separately billable procedures): Critical 30-74 mins Referrals: VANDANA ROWE MD [Primary Care Provider] - Follow up/PCP as directed Instructions: Heart Failure
[2024-03-31 23:58] LABS: Absolute Neutrophil Ct (ANC) 5.26 x10^3/uL (1.78-5.38); BASOPHIL % 0.9 % (0.2-1.2); Basophil (Absolute #) 0.09 x10^3/uL (0.01-0.08); Eosinophil % 4.4 % (0.8-7.0); Eosinophil (Absolute #) 0.45 x10^3/uL (0.04-0.54); Hemoglobin 15.3 g/dL (13.7-17.5); IMMATURE GRAN # 0.03 x10^3u/L (0.001-0.031); IMMATURE GRAN % 0.3 % (0.001-0.429); Lymphocyte (Absolute #) 3.21 x10^3/uL (1.32-3.57); Lymphocytes % 31.7 % (21.8-53.1); Mean Cell Volume 81.1 fL (79.0-92.2); Mean Corpuscular Hemoglobin 25.3 pg (25.7-32.2); Mean Corpuscular Hgb Concent. 31.2 g/dL (32.3-36.5); Mean Platelet Volume 12.4 fL (9.4-12.4); Monocyte (Absolute #) 1.08 x10^3/uL (0.30-0.82); Monocytes % 10.7 % (5.3-12.2); Platelet Count 205 x10^3/uL (163-337); Red Blood Count 6.04 x10^6/uL (4.63-6.08); Red Cell Distribution Width 16.1 % (11.6-14.4); White Blood Count 10.1 x10^3/uL (4.23-9.07)
[2024-04-01 00:13] LABS: ALBUMIN 4.6 g/dL (3.5-5.0); ANION GAP 17.9 MEQ/L (5-15); BILIRUBIN,TOTAL 0.5 mg/dL (0.2-1.3); Calcium 9.2 mg/dL (8.4-10.2); Creatinine 1 1.29 mg/dL (0.66-1.25); EST GLOMERULAR FILTRATION RATE 65.5 ML/MIN; MAGNESIUM 2.1 mg/dL (1.6-2.3); Potassium 3.9 mmol/L (3.5-5.1); Total Protein 7.8 g/dL (6.3-8.2)
[2024-04-01] MEDS: DUONEB 0.5-3 MG/3 ml Neb IH ONE (00:20)
[2024-04-01 00:25] LABS: NT PRO BNPII 381 pg/mL (<300); TROPONIN < 0.012 ng/mL (0.000-0.033)
--- NOTE | 2024-04-01 00:27 | XRAY ---
CLINICAL HISTORY: sob COMPARISON: None. TECHNIQUE: Radiograph of chest was acquired. FINDINGS: Sternal sutures are noted. Multiple, asymmetrical, discrete as well as confluent consolidations are noted involving bilateral lung reyes, predominantly on the right side. Linear opacities noted in the left peripheral lower zone, likely subsegmental atelectasis. Blunting of the right costophrenic angle is noted, suggestive of pleural effusion. Left costophrenic angle is normal. Apparent cardiomegaly is noted. No acute osseous abnormality. IMPRESSION: 1. Multiple, asymmetrical, discrete as well as confluent consolidations are noted involving bilateral lung reyes, predominantly on the right side. Possibility of infective etiology. Suggested clinical/lab correlation. 2. Linear opacity is noted in the left peripheral lower zone, likely subsegmental atelectasis. 3. Blunting of the right costophrenic angle is noted, suggestive of pleural effusion. 4. Apparent cardiomegaly is noted. Electronically Signed by: Arcenio Morillo MD. (04/01/2024 00:23:32 EST)
[2024-04-01] MEDS ORDERED: DUONEB 0.5-3 MG/3 ml Neb IH ONE (00:31)
[2024-04-01 00:43] LABS: INFLUENZA A NEGATIVE (NEGATIVE); INFLUENZA B NEGATIVE (NEGATIVE); RESPIRATORY SYNCTIAL VIRUS NEGATIVE (NEGATIVE); SARS-CoV-2 Xpert Express NEGATIVE (NEGATIVE)
[2024-04-01] MEDS ORDERED: Zithromax 500 MG/ 250 ML NaCl Premix 500 MG/250 ML IVPB IV ONE (00:49)
[2024-04-01] MEDS ORDERED: ROCEPHIN 2 GM/100 ML NACL 2 GM/100 ML IVPB IV ONE (00:49)
[2024-04-01] MEDS: Zithromax 500 MG/ 250 ML NaCl Premix 500 MG/250 ML IVPB IV STA (00:50)
[2024-04-01] MEDS: ROCEPHIN 2 GM/100 ML NACL 2 GM/100 ML IVPB IV ONE (00:50)
[2024-04-01] MEDS ORDERED: Zofran 4 MG/2 ML VIAL IV PRN (04:09)
[2024-04-01] MEDS ORDERED: DUONEB 0.5-3 MG/3 ml Neb IH PRN (04:42)
--- NOTE | 2024-04-01 05:13 | XRAY ---
CLINICAL HISTORY: SOB COMPARISON: None. TECHNIQUE: Contiguous axial images were obtained from the neck base through the upper abdomen without contrast. In addition, sagittal and coronal reconstructions were performed to potentially increase the sensitivity for the detection of disease. CT scan was performed according to ALARA (as low as reasonable achievable). FINDINGS: Multiple small innumerable ground-glass opacities with adjacent prominent vascular markings are noted involving bilateral lungs ; more of both upper lobes No pulmonary nodules are seen. The central airways are patent. There are no pleural effusions. No pneumothorax is seen. Evaluation of the mediastinum and fatimah is limited due to the lack of intravenous contrast. No axillary or mediastinal adenopathy is identified. The thyroid is unremarkable. The heart, aorta, and pulmonary arteries are of normal size and configuration. There are no appreciable coronary artery and aortic atherosclerotic calcifications. No pericardial effusion is identified. Imaged portions of the upper abdomen are unremarkable. No aggressive appearing osseous lesions are identified. IMPRESSION: Multiple small innumerable ground-glass opacities with adjacent prominent vascular markings are noted involving bilateral lungs ; more of both upper lobes- possibility of alveolar hemorrhage/ pulmonary edema. Infective etiology appears less likely. Electronically Signed by: Arcenio Morillo MD. (04/01/2024 03:00:39 EST)
[2024-04-01] MEDS ORDERED: HUMALOG SQ PRN (13:30)
[2024-04-01] MEDS: ECOTRIN 81 MG PO SCH (13:47)
[2024-04-01] MEDS: ENTRESTO 49 MG-51 MG TABLET PO SCH (13:47)
[2024-04-01] MEDS: Lasix 40 MG PO SCH (13:47)
[2024-04-01] MEDS: Klor Con PO SCH (13:47)
[2024-04-01] MEDS: Toprol Xl 50 MG PO SCH (13:47)
--- NOTE | 2024-04-01 13:54 | PCM.DS ---
Discharge Summary Date of Admission: 04/01/24 04:01 Date of Discharge: 04/01/24 Admitting Physician: VAIBHAV LEE MD Primary Care Provider: VANDANA ROWE Allergies Allergies No Known Drug Allergies Allergy (Unverified 12/03/23 09:39) Hospital Summary - Hospital Course Hospital Course: is a 53 year old male with pmhx of CAD with CABG, CHF, hypertension, diabetes who presented to ED 03/31/24 with complaints of sudden onset of shortn ess of breath and productive cough with yellow sputum. 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 On exam patient was noted with diffuse coarse crackles and wheezing. He reports that since his CABG in March of last year he has multiple episodes of similar symptoms which required hospitalization. CT findings demonstrated multiple small innumerable ground-glass opacities with adjacent prominent vascular markings are noted involving bilateral lungs ; more of both upper lobes- possibility of alveolar hemorrhage/ pulmonary edema. Infective etiology appears less likely. Lab findings remarkable for up-trending troponins 0.769>0.701> <0.012. EKG findings with sinus tach with PVC but no acute ST elevations. Lab findings remarkable for white count of 10, lactate of 3.4, and BNP in 300s. Lactic acid now wnl. Patient initially placed on nonrebreather immediately followed by CPAP. Patient improved quickly and now on 2L NC. He was given lasix and Nitro in ED. Patient did have chemical stress test done at [facility] by Dr. Noonan 03/31/24. Patient admitted for pulmonary edema and CHF exacerbation. Patient has requested to transfer to [facility] for higher level of care with pulmonology and cardiology. Request has been accepted pending bed availability. 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 Vargas. Discharge Note Latest Assessment & Plan CHF exacerbation -no recent echo on file -Follows with Dr. Vargas OP with recent -lasix 40 bid -CT demonstrated multiple small innumerable ground-glass opacities with adjacent prominent vascular markings are noted involving bilateral lungs ; more of both upper lobes- possibility of alveolar hemorrhage/ pulmonary edema. Infective etiology appears less likely -supplemental oxygen with goal spo2 > 92% Elevated Troponins -Uptrending -BNP elevated -Initial EKG with sinus tach with PVC but no acute ST elevations CAD -s/p CABG March of 2023 -Follows with Dr. Vargas -continue home meds HTN -with episode of hypotension -monitor closely Type 2 DM -SSI -ADA diet -A1c I spent 35 minutes [id number] with the patient on the day of discharge performing discharge exam, discussing hospital stay and discharge instructions with patient and caregivers, preparation of discharge records, prescriptions & r eferral forms and addressing any questions/concerns the patient had as documented above. - Vitals & Intake/Output Vital Signs: Vital Signs Temperature 97.7 F 04/01/24 07:34 Pulse Rate 65 04/01/24 11:58 Respiratory Rate 16 04/01/24 11:58 Blood Pressure 112/68 04/01/24 11:58 O2 Sat by Pulse Oximetry 96 04/01/24 11:58 Intake & Output: Intake & Output 03/30/24 03/31/24 04/01/24 04/02/24 11:59 11:59 11:59 11:59 Weight 107.7 kg - Lab Result Diagrams: 03/31/24 23:53 03/31/24 23:53 Lab Results-Last 24 Hrs: Lab Results-Last 24 Hours 03/31/24 03/31/24 03/31/24 Range/Units 23:40 23:53 23:53 WBC 10.1 H (4.23-9.07) x10^3/uL RBC 6.04 (4.63-6.08) x10^6/uL Hgb 15.3 (13.7-17.5) g/dL Hct 49.0 (40.1-51.0) % MCV 81.1 (79.0-92.2) fL MCH 25.3 L (25.7-32.2) pg MCHC 31.2 L (32.3-36.5) g/dL RDW 16.1 H (11.6-14.4) % Plt Count 205 (163-337) x10^3/uL MPV 12.4 (9.4-12.4) fL Gran % 52.0 (34.0-67.9) % Immature Gran % (Auto) 0.3 (0.001-0.429) % Nucleat RBC Rel Count 0.0 (0.00-0.2) % Eos # (Auto) 0.45 (0.04-0.54) x10^3/uL Immature Gran # (Auto) 0.03 (0.001-0.031) x10^3u/L Absolute Lymphs (auto) 3.21 (1.32-3.57) x10^3/uL Absolute Monos (auto) 1.08 H (0.30-0.82) x10^3/uL Absolute Nucleated RBC 0.00 (0.00-0.012) x10^3u/L Lymphocytes % 31.7 (21.8-53.1) % Monocytes % 10.7 (5.3-12.2) % Eosinophils % 4.4 (0.8-7.0) % Basophils % 0.9 (0.2-1.2) % Absolute Granulocytes 5.26 (1.78-5.38) x10^3/uL Basophils # 0.09 H (0.01-0.08) x10^3/uL Sodium 137 (135-145) mmol/L Potassium 3.9 (3.5-5.1) mmol/L Chloride 101 (98-107) mmol/L Carbon Dioxide 22 (22-30) mmol/L Anion Gap 17.9 H (5-15) MEQ/L BUN 22 H (9-20) mg/dL Creatinine 1.29 H (0.66-1.25) mg/dL Estimated GFR 65.5 ML/MIN Glucose 270 H (74-106) mg/dL POC Glucometer (74 to 106) mg/dL Lactic Acid 3.4 H (0.4-2.0) Calcium 9.2 (8.4-10.2) mg/dL Magnesium 2.1 (1.6-2.3) mg/dL Total Bilirubin 0.50 (0.2-1.3) mg/dL AST 32 (17-59) U/L ALT 25 (0-50) U/L Alkaline Phosphatase 113 (38-126) U/L Troponin I (0.000-0.033) ng/mL NT-Pro-B Natriuret Pep (<300) pg/mL Serum Total Protein 7.8 (6.3-8.2) g/dL Albumin 4.6 (3.5-5.0) g/dL Influenza Type A Ag (NEGATIVE) Influenza Type B Ag (NEGATIVE) RSV (PCR) (NEGATIVE) SARS-CoV-2 (PCR) (NEGATIVE) 03/31/24 03/31/24 04/01/24 Range/Units 23:53 23:53 04:11 WBC (4.23-9.07) x10^3/uL RBC (4.63-6.08) x10^6/uL Hgb (13.7-17.5) g/dL Hct (40.1-51.0) % MCV (79.0-92.2) fL MCH (25.7-32.2) pg MCHC (32.3-36.5) g/dL RDW (11.6-14.4) % Plt Count (163-337) x10^3/uL MPV (9.4-12.4) fL Gran % (34.0-67.9) % Immature Gran % (Auto) (0.001-0.429) % Nucleat RBC Rel Count (0.00-0.2) % Eos # (Auto) (0.04-0.54) x10^3/uL Immature Gran # (Auto) (0.001-0.031) x10^3u/L Absolute Lymphs (auto) (1.32-3.57) x10^3/uL Absolute Monos (auto) (0.30-0.82) x10^3/uL Absolute Nucleated RBC (0.00-0.012) x10^3u/L Lymphocytes % (21.8-53.1) % Monocytes % (5.3-12.2) % Eosinophils % (0.8-7.0) % Basophils % (0.2-1.2) % Absolute Granulocytes (1.78-5.38) x10^3/uL Basophils # (0.01-0.08) x10^3/uL Sodium (135-145) mmol/L Potassium (3.5-5.1) mmol/L Chloride (98-107) mmol/L Carbon Dioxide (22-30) mmol/L Anion Gap (5-15) MEQ/L BUN (9-20) mg/dL Creatinine (0.66-1.25) mg/dL Estimated GFR ML/MIN Glucose (74-106) mg/dL POC Glucometer (74 to 106) mg/dL Lactic Acid (0.4-2.0) Calcium (8.4-10.2) mg/dL Magnesium (1.6-2.3) mg/dL Total Bilirubin (0.2-1.3) mg/dL AST (17-59) U/L ALT (0-50) U/L Alkaline Phosphatase (38-126) U/L Troponin I < 0.012 0.701 H* (0.000-0.033) ng/mL NT-Pro-B Natriuret Pep 381 (<300) pg/mL Serum Total Protein (6.3-8.2) g/dL Albumin (3.5-5.0) g/dL Influenza Type A Ag NEGATIVE (NEGATIVE) Influenza Type B Ag NEGATIVE (NEGATIVE) RSV (PCR) NEGATIVE (NEGATIVE) SARS-CoV-2 (PCR) NEGATIVE (NEGATIVE) 04/01/24 04/01/24 04/01/24 Range/Units 07:29 07:35 11:48 WBC (4.23-9.07) x10^3/uL RBC (4.63-6.08) x10^6/uL Hgb (13.7-17.5) g/dL Hct (40.1-51.0) % MCV (79.0-92.2) fL MCH (25.7-32.2) pg MCHC (32.3-36.5) g/dL RDW (11.6-14.4) % Plt Count (163-337) x10^3/uL MPV (9.4-12.4) fL Gran % (34.0-67.9) % Immature Gran % (Auto) (0.001-0.429) % Nucleat RBC Rel Count (0.00-0.2) % Eos # (Auto) (0.04-0.54) x10^3/uL Immature Gran # (Auto) (0.001-0.031) x10^3u/L Absolute Lymphs (auto) (1.32-3.57) x10^3/uL Absolute Monos (auto) (0.30-0.82) x10^3/uL Absolute Nucleated RBC (0.00-0.012) x10^3u/L Lymphocytes % (21.8-53.1) % Monocytes % (5.3-12.2) % Eosinophils % (0.8-7.0) % Basophils % (0.2-1.2) % Absolute Granulocytes (1.78-5.38) x10^3/uL Basophils # (0.01-0.08) x10^3/uL Sodium (135-145) mmol/L Potassium (3.5-5.1) mmol/L Chloride (98-107) mmol/L Carbon Dioxide (22-30) mmol/L Anion Gap (5-15) MEQ/L BUN (9-20) mg/dL Creatinine (0.66-1.25) mg/dL Estimated GFR ML/MIN Glucose (74-106) mg/dL POC Glucometer 131 H (74 to 106) mg/dL Lactic Acid 1.2 (0.4-2.0) Calcium (8.4-10.2) mg/dL Magnesium (1.6-2.3) mg/dL Total Bilirubin (0.2-1.3) mg/dL AST (17-59) U/L ALT (0-50) U/L Alkaline Phosphatase (38-126) U/L Troponin I 0.769 H* (0.000-0.033) ng/mL NT-Pro-B Natriuret Pep (<300) pg/mL Serum Total Protein (6.3-8.2) g/dL Albumin (3.5-5.0) g/dL Influenza Type A Ag (NEGATIVE) Influenza Type B Ag (NEGATIVE) RSV (PCR) (NEGATIVE) SARS-CoV-2 (PCR) (NEGATIVE) Micro Results-Entire Visit: Accuchecks Date 04/01/24 Time 11:58 - Radiology Exams Ordered Rad Exams-Entire Visit: Radiology Procedures Category Date Time Status CHEST 1 VIEW (PORTABLE) Stat Exams 03/31/24 23:39 Completed CHEST WITHOUT CONTRAST [CT] Routine Exams 04/01/24 04:58 Completed - Procedures and Test Procedures and Tests throughout Hospitalization: Therapy Orders & Screens 03/31/24 23:55 BiPap/CPAP STAT Comment: 04/01/24 01:10 Respiratory Therapy Consult ONCE Comment: Reason For Exam: 04/01/24 04:38 Oxygen Nasal Cannula 2 lpm Comment: Respiratory Therapy Assessment DAILY Comment: 04/01/24 06:16 EKG ROUTINE Comment: 04/01/24 08:23 EKG ONCE Comment: Diagnosis: exacerb CHF, resp failure, Pneumonia Discharge Exam General Appearance: no apparent distress Neurologic Exam: alert, oriented x 3, cooperative Eye Exam: PERRL Ears, Nose, Throat Exam: normal ENT inspection Neck Exam: normal inspection Respiratory Exam: crackles/rales Cardiovascular Exam: regular rate/rhythm, normal heart sounds Gastrointestinal/Abdomen Exam: soft, normal bowel sounds Male Genitalia Exam: deferred Rectal Exam: deferred Back Exam: normal inspection Extremity Exam: swelling (BLE +1) Final Diagnosis/Problem List - Final Discharge Diagnosis/Problem (1) Acute exacerbation of congestive heart failure Current Visit: Yes Status: Acute Code(s): I50.9 - HEART FAILURE, UNSPECIFIED (2) Acute respiratory failure with hypoxia Current Visit: Yes Status: Acute Code(s): J96.01 - ACUTE RESPIRATORY FAILURE WITH HYPOXIA (3) CAD (coronary artery disease) Current Visit: Yes Status: Chronic Code(s): I25.10 - ATHSCL HEART DISEASE OF [place] CORONARY ARTERY W/O ANG PCTRS (4) Type 2 diabetes mellitus Current Visit: Yes Status: Chronic (5) HTN (hypertension) Current Visit: Yes Status: Chronic Code(s): I10 - ESSENTIAL (PRIMARY) HYPERTENSION - Discharge Disposition: Home, Self-Care Condition: Stable Prescriptions: New Albuterol/Ipratropium 3ml Neb* [DUONEB 0.5-3 MG/3 ml Neb] 3 ml IH Q4HPRN PRN PRN Reason: Shortness Of Breath/Wheezing Furosemide 40 mg/4 ml [Lasix 40 MG/4 ML] 40 mg IV BID DIURETIC Continue Sacubitril/Valsartan [Entresto 24 mg-26 mg Tablet] 1 tab PO BID Metoprolol Succinate 50 mg [Toprol Xl 50 MG] 1 tab PO DAILY Metformin HCl [Metformin ER Osmotic] 1 tab PO BID Empagliflozin [Jardiance] 25 mg PO DAILY Atorvastatin Calcium [Lipitor 20MG Tablet] 1 tab PO HS Aspirin EC 81 mg [Ecotrin 81 mg] 1 tab PO DAILY Potassium Chloride [Klor-Con 10] 1 tab PO DAILY Discontinued Furosemide 40 mg [Lasix 40 MG] 1 tab PO DAILY Follow up with: VANDANA ROWE MD [Primary Care Provider] -
[2024-04-01 14:05] LABS: ALBUMIN 4.7 g/dL (3.5-5.0); ANION GAP 21.2 MEQ/L (5-15); Absolute Neutrophil Ct (ANC) 7.97 x10^3/uL (1.78-5.38); BASOPHIL % 0.5 % (0.2-1.2); BILIRUBIN,TOTAL 0.5 mg/dL (0.2-1.3); Basophil (Absolute #) 0.05 x10^3/uL (0.01-0.08); Calcium 8.9 mg/dL (8.4-10.2); Creatinine 1 1.25 mg/dL (0.66-1.25); Eosinophil (Absolute #) 0.21 x10^3/uL (0.04-0.54); Hematocrit 42.7 % (40.1-51.0); Hemoglobin 12.9 g/dL (13.7-17.5); IMMATURE GRAN # 0.04 x10^3u/L (0.001-0.031); IMMATURE GRAN % 0.4 % (0.001-0.429); Lymphocyte (Absolute #) 1.33 x10^3/uL (1.32-3.57); Lymphocytes % 12.7 % (21.8-53.1); Mean Cell Volume 83.1 fL (79.0-92.2); Mean Corpuscular Hemoglobin 25.1 pg (25.7-32.2); Mean Corpuscular Hgb Concent. 30.2 g/dL (32.3-36.5); Monocyte (Absolute #) 0.86 x10^3/uL (0.30-0.82); Monocytes % 8.2 % (5.3-12.2); Neutrophil % 76.2 % (34.0-67.9); Platelet Count 166 x10^3/uL (163-337); Potassium 3.9 mmol/L (3.5-5.1); Red Blood Count 5.14 x10^6/uL (4.63-6.08); Red Cell Distribution Width 16.5 % (11.6-14.4); Total Protein 8.3 g/dL (6.3-8.2); White Blood Count 10.5 x10^3/uL (4.23-9.07)
[2024-04-01] MEDS: JARDIANCE PO SCH (14:13)
--- NOTE | 2024-04-01 16:12 | PCM.HP ---
History of Present Illness - Chief Complaint Chief Complaint: exacerb CHF, resp failure, Pneumonia Date: 04/01/24 History of Present Illness: Mr Anderson is a 53 year-old gentleman with CAD s/p CABG, CHF (unknown EF), CKD, HTN, HLD, and DM2 who presents with acute hypoxemic respiratory failure. 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 Upon evaluation, he was found to be hypoxic in the setting of chest imaging that revealed diffuse, patchy ground glass. Laboratory data revealed a slightly elevated Cr (baseline), NAGMA, and an initial troponin of 0.01 which quickly aren to 0.7 with no acute EKG changes. He is being worked up by an outside seafood packer for recurrent episodes such as these (recently admitted for ACS rule out), and he had a nuclear stress test earlier today. On my examination, he is back on room air, and he currently denies any fevers, chills, nausea, vomiting, diarrhea, syncope, presyncope, visual changes, orthopnea, PND, odynophagia, dysphagia, chest pain, shortness of breath, belly pain, dysuria, hematuria, melena, hematochezia, or neurological changes. All other systems were reviewed and were negative. - Review of Systems Constitutional: No Fever, No Chills Eyes: No Symptoms Ears, Nose, & Throat: No Symptoms Respiratory: Cough, Short Of Breath Cardiac: No Chest Pain, No Edema, No Syncope Abdominal/Gastrointestinal: No Abdominal Pain, No Nausea, No Vomiting, No Diarrhea Genitourinary Symptoms: No Dysuria Musculoskeletal: No Back Pain, No Neck Pain Skin: No Rash Neurological: No Dizziness, No Focal Weakness, No Sensory Changes Psychological: No Symptoms Endocrine: No Symptoms Hematologic/Lymphatic: No Symptoms Immunological/Allergic: No Symptoms Medications & Allergies Home Medications: Home Medication List Aspirin EC 81 mg [Ecotrin 81 mg] 1 tab PO DAILY 12/03/23 [History Confirmed 03/31/24] Atorvastatin Calcium [Lipitor 20MG Tablet] 1 tab PO HS 12/03/23 [History Confirmed 03/31/24] Empagliflozin [Jardiance] 25 mg PO DAILY 12/03/23 [History Confirmed 03/31/24] Metformin HCl [Metformin ER Osmotic] 1 tab PO BID 12/03/23 [History Confirmed 03/31/24] Metoprolol Succinate 50 mg [Toprol Xl 50 MG] 1 tab PO DAILY 12/03/23 [History Confirmed 03/31/24] Potassium Chloride [Klor-Con 10] 1 tab PO DAILY 12/03/23 [History Confirmed 03/31/24] Sacubitril/Valsartan [Entresto 24 mg-26 mg Tablet] 1 tab PO BID 12/03/23 [History Confirmed 03/31/24] Albuterol/Ipratropium 3ml Neb* [DUONEB 0.5-3 MG/3 ml Neb] 3 ml IH Q4HPRN PRN 04/01/24 [Rx] Furosemide 40 mg/4 ml [Lasix 40 MG/4 ML] 40 mg IV BID DIURETIC 04/01/24 [Rx] Allergies/Adverse Reactions: Allergies Allergy/AdvReac Type Severity Reaction Status Date / Time No Known Drug Allergies Allergy Unverified 12/03/23 09:39 - Past Medical History Past Medical History: Yes Neurological History: No Pertinent History ENT History: No Pertinent History Cardiac History: High Cholesterol, Hypertension, Myocardial Infarction ([place]) Respiratory History: No Pertinent History Endocrine Medical History: Diabetes Type II Musculoskelatal History: No Pertinent History GI Medical History: No Pertinent History History: No Pertinent History Pyscho-Social History: No Pertinent History Male Reproductive Disorders: No Pertinent History - Past Surgical History Past Surgical History: Yes Neuro Surgical History: No Pertinent History Cardiac History: CABG, Cardiac Stent Respiratory Surgery: No Pertinent History GI Surgical History: No Pertinent History Genitourinary Surgical Hx: No Pertinent History Musculskeletal Surgical Hx: No Pertinent History Male Surgical History: No Pertinent History Other Surgical History: 5 heart bypass in 2022 Significant Family History: no pertinent family hx - Social History Smoking Status: Never smoker Exposure to second hand smoke: No Alcohol: None Drug Use: none - Social Determinants of Health Will the patient participate in the screening: Yes Do you worry about a steady place to live?: No Do you have any problems with any of the following?: No known problems In the past 12 months,have you had to go without utilities?: No Have you or anyone in your house had to go without enough: No Transportation Issues: No Has anyone in your support network made you feel unsafe?: No Does the patient want assistance with any of the above?: No - Physical Exam Vital Signs: Vital Signs - 24 hr Temp Pulse Resp BP Pulse Ox 04/01/24 11:58 65 16 112/68 96 04/01/24 07:34 97.7 F 70 16 82/47 96 04/01/24 06:00 97.5 F 92 H 16 83/56 91 L 04/01/24 05:35 69 16 97 04/01/24 00:54 100 04/01/24 00:20 104 H 24 94 L 04/01/24 00:15 82 18 108/50 95 03/31/24 23:32 97.1 F 118 H 42 H 152/111 85 L General Appearance: no apparent distress, alert Neurologic Exam: alert, oriented x 3, cooperative, normal mood/affect, nml cerebellar function, nml station & gait, sensation nml, No motor deficits Eye Exam: PERRL/EOMI, eyes nml inspection Ears, Nose, Throat Exam: normal ENT inspection, TMs normal, pharynx normal, moist mucous membranes Neck Exam: normal inspection, non-tender, supple, full range of motion Respiratory Exam: normal breath sounds, lungs clear, No respiratory distress Cardiovascular Exam: regular rate/rhythm, normal heart sounds, normal peripheral pulses Gastrointestinal/Abdomen Exam: soft, normal bowel sounds, No tenderness, No mass Back Exam: normal inspection, normal range of motion, No CVA tenderness, No vertebral tenderness Extremity Exam: normal inspection, normal range of motion, pelvis stable Skin Exam: normal color, warm, dry, No rash Lymphatic Exam: No adenopathy Results - Labs Lab/Micro Results: Lab Results-Last 24 Hours 03/31/24 03/31/24 03/31/24 Range/Units 23:40 23:53 23:53 WBC 10.1 H (4.23-9.07) x10^3/uL RBC 6.04 (4.63-6.08) x10^6/uL Hgb 15.3 (13.7-17.5) g/dL Hct 49.0 (40.1-51.0) % MCV 81.1 (79.0-92.2) fL MCH 25.3 L (25.7-32.2) pg MCHC 31.2 L (32.3-36.5) g/dL RDW 16.1 H (11.6-14.4) % Plt Count 205 (163-337) x10^3/uL MPV 12.4 (9.4-12.4) fL Gran % 52.0 (34.0-67.9) % Immature Gran % (Auto) 0.3 (0.001-0.429) % Nucleat RBC Rel Count 0.0 (0.00-0.2) % Eos # (Auto) 0.45 (0.04-0.54) x10^3/uL Immature Gran # (Auto) 0.03 (0.001-0.031) x10^3u/L Absolute Lymphs (auto) 3.21 (1.32-3.57) x10^3/uL Absolute Monos (auto) 1.08 H (0.30-0.82) x10^3/uL Absolute Nucleated RBC 0.00 (0.00-0.012) x10^3u/L Lymphocytes % 31.7 (21.8-53.1) % Monocytes % 10.7 (5.3-12.2) % Eosinophils % 4.4 (0.8-7.0) % Basophils % 0.9 (0.2-1.2) % Absolute Granulocytes 5.26 (1.78-5.38) x10^3/uL Basophils # 0.09 H (0.01-0.08) x10^3/uL Sodium 137 (135-145) mmol/L Potassium 3.9 (3.5-5.1) mmol/L Chloride 101 (98-107) mmol/L Carbon Dioxide 22 (22-30) mmol/L Anion Gap 17.9 H (5-15) MEQ/L BUN 22 H (9-20) mg/dL Creatinine 1.29 H (0.66-1.25) mg/dL Estimated GFR 65.5 ML/MIN Glucose 270 H (74-106) mg/dL POC Glucometer (74 to 106) mg/dL Lactic Acid 3.4 H (0.4-2.0) Calcium 9.2 (8.4-10.2) mg/dL Magnesium 2.1 (1.6-2.3) mg/dL Total Bilirubin 0.50 (0.2-1.3) mg/dL AST 32 (17-59) U/L ALT 25 (0-50) U/L Alkaline Phosphatase 113 (38-126) U/L Troponin I (0.000-0.033) ng/mL NT-Pro-B Natriuret Pep (<300) pg/mL Serum Total Protein 7.8 (6.3-8.2) g/dL Albumin 4.6 (3.5-5.0) g/dL Influenza Type A Ag (NEGATIVE) Influenza Type B Ag (NEGATIVE) RSV (PCR) (NEGATIVE) SARS-CoV-2 (PCR) (NEGATIVE) 03/31/24 03/31/24 04/01/24 Range/Units 23:53 23:53 04:11 WBC (4.23-9.07) x10^3/uL RBC (4.63-6.08) x10^6/uL Hgb (13.7-17.5) g/dL Hct (40.1-51.0) % MCV (79.0-92.2) fL MCH (25.7-32.2) pg MCHC (32.3-36.5) g/dL RDW (11.6-14.4) % Plt Count (163-337) x10^3/uL MPV (9.4-12.4) fL Gran % (34.0-67.9) % Immature Gran % (Auto) (0.001-0.429) % Nucleat RBC Rel Count (0.00-0.2) % Eos # (Auto) (0.04-0.54) x10^3/uL Immature Gran # (Auto) (0.001-0.031) x10^3u/L Absolute Lymphs (auto) (1.32-3.57) x10^3/uL Absolute Monos (auto) (0.30-0.82) x10^3/uL Absolute Nucleated RBC (0.00-0.012) x10^3u/L Lymphocytes % (21.8-53.1) % Monocytes % (5.3-12.2) % Eosinophils % (0.8-7.0) % Basophils % (0.2-1.2) % Absolute Granulocytes (1.78-5.38) x10^3/uL Basophils # (0.01-0.08) x10^3/uL Sodium (135-145) mmol/L Potassium (3.5-5.1) mmol/L Chloride (98-107) mmol/L Carbon Dioxide (22-30) mmol/L Anion Gap (5-15) MEQ/L BUN (9-20) mg/dL Creatinine (0.66-1.25) mg/dL Estimated GFR ML/MIN Glucose (74-106) mg/dL POC Glucometer (74 to 106) mg/dL Lactic Acid (0.4-2.0) Calcium (8.4-10.2) mg/dL Magnesium (1.6-2.3) mg/dL Total Bilirubin (0.2-1.3) mg/dL AST (17-59) U/L ALT (0-50) U/L Alkaline Phosphatase (38-126) U/L Troponin I < 0.012 0.701 H* (0.000-0.033) ng/mL NT-Pro-B Natriuret Pep 381 (<300) pg/mL Serum Total Protein (6.3-8.2) g/dL Albumin (3.5-5.0) g/dL Influenza Type A Ag NEGATIVE (NEGATIVE) Influenza Type B Ag NEGATIVE (NEGATIVE) RSV (PCR) NEGATIVE (NEGATIVE) SARS-CoV-2 (PCR) NEGATIVE (NEGATIVE) 04/01/24 04/01/24 04/01/24 Range/Units 04:11 04:11 07:29 WBC 10.5 H (4.23-9.07) x10^3/uL RBC 5.14 (4.63-6.08) x10^6/uL Hgb 12.9 L (13.7-17.5) g/dL Hct 42.7 (40.1-51.0) % MCV 83.1 (79.0-92.2) fL MCH 25.1 L (25.7-32.2) pg MCHC 30.2 L (32.3-36.5) g/dL RDW 16.5 H (11.6-14.4) % Plt Count 166 (163-337) x10^3/uL MPV (9.4-12.4) fL Gran % 76.2 H (34.0-67.9) % Immature Gran % (Auto) 0.4 (0.001-0.429) % Nucleat RBC Rel Count 0.0 (0.00-0.2) % Eos # (Auto) 0.21 (0.04-0.54) x10^3/uL Immature Gran # (Auto) 0.04 H (0.001-0.031) x10^3u/L Absolute Lymphs (auto) 1.33 (1.32-3.57) x10^3/uL Absolute Monos (auto) 0.86 H (0.30-0.82) x10^3/uL Absolute Nucleated RBC 0.00 (0.00-0.012) x10^3u/L Lymphocytes % 12.7 L (21.8-53.1) % Monocytes % 8.2 (5.3-12.2) % Eosinophils % 2.0 (0.8-7.0) % Basophils % 0.5 (0.2-1.2) % Absolute Granulocytes 7.97 H (1.78-5.38) x10^3/uL Basophils # 0.05 (0.01-0.08) x10^3/uL Sodium 138 (135-145) mmol/L Potassium 3.9 (3.5-5.1) mmol/L Chloride 102 (98-107) mmol/L Carbon Dioxide 19 L (22-30) mmol/L Anion Gap 21.2 H (5-15) MEQ/L BUN 22 H (9-20) mg/dL Creatinine 1.25 (0.66-1.25) mg/dL Estimated GFR 68.0 ML/MIN Glucose 253 H (74-106) mg/dL POC Glucometer (74 to 106) mg/dL Lactic Acid (0.4-2.0) Calcium 8.9 (8.4-10.2) mg/dL Magnesium (1.6-2.3) mg/dL Total Bilirubin 0.50 (0.2-1.3) mg/dL AST 39 (17-59) U/L ALT 26 (0-50) U/L Alkaline Phosphatase 116 (38-126) U/L Troponin I 0.769 H* (0.000-0.033) ng/mL NT-Pro-B Natriuret Pep (<300) pg/mL Serum Total Protein 8.3 H (6.3-8.2) g/dL Albumin 4.7 (3.5-5.0) g/dL Influenza Type A Ag (NEGATIVE) Influenza Type B Ag (NEGATIVE) RSV (PCR) (NEGATIVE) SARS-CoV-2 (PCR) (NEGATIVE) 04/01/24 04/01/24 Range/Units 07:35 11:48 WBC (4.23-9.07) x10^3/uL RBC (4.63-6.08) x10^6/uL Hgb (13.7-17.5) g/dL Hct (40.1-51.0) % MCV (79.0-92.2) fL MCH (25.7-32.2) pg MCHC (32.3-36.5) g/dL RDW (11.6-14.4) % Plt Count (163-337) x10^3/uL MPV (9.4-12.4) fL Gran % (34.0-67.9) % Immature Gran % (Auto) (0.001-0.429) % Nucleat RBC Rel Count (0.00-0.2) % Eos # (Auto) (0.04-0.54) x10^3/uL Immature Gran # (Auto) (0.001-0.031) x10^3u/L Absolute Lymphs (auto) (1.32-3.57) x10^3/uL Absolute Monos (auto) (0.30-0.82) x10^3/uL Absolute Nucleated RBC (0.00-0.012) x10^3u/L Lymphocytes % (21.8-53.1) % Monocytes % (5.3-12.2) % Eosinophils % (0.8-7.0) % Basophils % (0.2-1.2) % Absolute Granulocytes (1.78-5.38) x10^3/uL Basophils # (0.01-0.08) x10^3/uL Sodium (135-145) mmol/L Potassium (3.5-5.1) mmol/L Chloride (98-107) mmol/L Carbon Dioxide (22-30) mmol/L Anion Gap (5-15) MEQ/L BUN (9-20) mg/dL Creatinine (0.66-1.25) mg/dL Estimated GFR ML/MIN Glucose (74-106) mg/dL POC Glucometer 131 H (74 to 106) mg/dL Lactic Acid 1.2 (0.4-2.0) Calcium (8.4-10.2) mg/dL Magnesium (1.6-2.3) mg/dL Total Bilirubin (0.2-1.3) mg/dL AST (17-59) U/L ALT (0-50) U/L Alkaline Phosphatase (38-126) U/L Troponin I (0.000-0.033) ng/mL NT-Pro-B Natriuret Pep (<300) pg/mL Serum Total Protein (6.3-8.2) g/dL Albumin (3.5-5.0) g/dL Influenza Type A Ag (NEGATIVE) Influenza Type B Ag (NEGATIVE) RSV (PCR) (NEGATIVE) SARS-CoV-2 (PCR) (NEGATIVE) Accuchecks Date 04/01/24 Time 11:58 - Radiology Impressions Radiology Exams & Impressions: Radiology Procedures Category Date Time Status CHEST 1 VIEW (PORTABLE) Stat Exams 03/31/24 23:39 Completed CHEST WITHOUT CONTRAST [CT] Routine Exams 04/01/24 04:58 Completed - Other Procedures and Tests Respiratory Therapy 04/01/24 04:38 Oxygen Nasal Cannula 2 lpm Respiratory Therapy Assessment DAILY Assessment/Plan (1) Acute respiratory failure with hypoxia Current Visit: Yes Status: Acute Assessment & Plan: ASSESSMENT 1. Acute Hypoxemic Respiratory Failure 2. Possible Pneumonia 3. Possible Pulmonary Edema 4. Non-ST Elevation Myocardial Infarction 5. Hypertension 6. Hyperlipidemia 7. Chronic Kidney Disease 8. Coronary Artery Disease s/p CABG PLAN 1. Currently on room air and feeling better 2. GGO on CT scan - atypical PNA vs. viral PNA vs. pulmonary edema 3. Empiric diuresis 4. Empiric Abx to cover atypicals 5. Viral panel negative 6. Trend troponins 7. After talking to patient, we will coordinate with his outside seafood packer regarding next steps as well as follow-up on stress test The entirety of this encounter was done via telemedicine with audio and visual. Consent was obtained for a telemedicine encounter. Maico Lindsay MD Pulmonary and Critical Care Medicine Code(s): J96.01 - ACUTE RESPIRATORY FAILURE WITH HYPOXIA Telemedicine Encounter - Telemedicine Encounter Telemedicine Encounter: "The entirety of this encounter was performed via Telemedicine" This visit was performed using real-time audio and video connection between my location and thepatients locationwith the assistance of a surrogateat the patients location. Written or verbal consent was obtained from the patient/guardian to perform this visit usingsynchrka[facility] hospitaltelemedicine technology. Any patient questions regarding the telemedicine interaction were answered.
[2024-04-01] MEDS: LEVOFLOXACIN 750MG/150ML D5W 750 MG/150 ML BAG IV SCH (17:50)
--- NOTE | 2024-04-01 19:16 | PCM.CONS ---
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 Upon assessment his BP was found to be in the 150/110 and he was treated with nitro with improvement in symptoms and BP. EKG showed no acute changes. Trops, however, increased from undetectable to 0.70 --> 0.76 as of this morning. He's continued to be symptom free and is wanting to be discharged. I've discussed the case with his primary stencil typist Dr. Aubrie Vargas who tells me his MPI yesterday showed reversible ischemia in the LAD territory and that he needed LHC to further evaluate. He said if he goes home over the weekend, he definitely needs to keep an appointment he made for him this upcoming Thursday but also suggested LHC at [place] as a possibility over the weekend. cc:: The requesting physician will be sent a copy of the consult. Review of Systems - Review of Systems All systems: as per HPI - Past Medical History Past Medical History: Yes Neurological History: No Pertinent History ENT History: No Pertinent History Cardiac History: High Cholesterol, Hypertension, Myocardial Infarction ([place]) Respiratory History: No Pertinent History Endocrine Medical History: Diabetes Type II Musculoskelatal History: No Pertinent History GI Medical History: No Pertinent History History: No Pertinent History Pyscho-Social History: No Pertinent History Male Reproductive Disorders: No Pertinent History - Past Surgical History Past Surgical History: Yes Neuro Surgical History: No Pertinent History Cardiac History: CABG, Cardiac Stent Respiratory Surgery: No Pertinent History GI Surgical History: No Pertinent History Genitourinary Surgical Hx: No Pertinent History Musculskeletal Surgical Hx: No Pertinent History Male Surgical History: No Pertinent History Other Surgical History: 5 heart bypass in 2022 Significant Family History: no pertinent family hx - Social History Smoking Status: Never smoker Exposure to second hand smoke: No Alcohol: None Drug Use: none - Social Determinants of Health Will the patient participate in the screening: Yes Do you worry about a steady place to live?: No Do you have any problems with any of the following?: No known problems In the past 12 months,have you had to go without utilities?: No Have you or anyone in your house had to go without enough: No Transportation Issues: No Has anyone in your support network made you feel unsafe?: No Does the patient want assistance with any of the above?: No Medications & Allergies Home Medications: Home Medication List Aspirin EC 81 mg [Ecotrin 81 mg] 1 tab PO DAILY 12/03/23 [History Confirmed 03/31/24] Atorvastatin Calcium [Lipitor 20MG Tablet] 1 tab PO HS 12/03/23 [History Confirmed 03/31/24] Empagliflozin [Jardiance] 25 mg PO DAILY 12/03/23 [History Confirmed 03/31/24] Metformin HCl [Metformin ER Osmotic] 1 tab PO BID 12/03/23 [History Confirmed 03/31/24] Metoprolol Succinate 50 mg [Toprol Xl 50 MG] 1 tab PO DAILY 12/03/23 [History Confirmed 03/31/24] Potassium Chloride [Klor-Con 10] 1 tab PO DAILY 12/03/23 [History Confirmed 03/31/24] Sacubitril/Valsartan [Entresto 24 mg-26 mg Tablet] 1 tab PO BID 12/03/23 [History Confirmed 03/31/24] Albuterol/Ipratropium 3ml Neb* [DUONEB 0.5-3 MG/3 ml Neb] 3 ml IH Q4HPRN PRN 04/01/24 [Rx] Furosemide 40 mg/4 ml [Lasix 40 MG/4 ML] 40 mg IV BID DIURETIC 04/01/24 [Rx] Allergies/Adverse Reactions: Allergies Allergy/AdvReac Type Severity Reaction Status Date / Time No Known Drug Allergies Allergy Unverified 12/03/23 09:39 Exam - Vitals Vital Signs: Vital Signs - 24 hr Temp Pulse Resp BP Pulse Ox 04/01/24 16:00 98.1 F 63 16 81/46 94 L 04/01/24 11:58 65 16 112/68 96 04/01/24 07:34 97.7 F 70 16 82/47 96 04/01/24 06:00 97.5 F 92 H 16 83/56 91 L 04/01/24 05:35 69 16 97 04/01/24 00:54 100 04/01/24 00:20 104 H 24 94 L 04/01/24 00:15 82 18 108/50 95 03/31/24 23:32 97.1 F 118 H 42 H 152/111 85 L General:: alert and oriented x 4, no acute distress HEENT: EOMI Cardiovascular Exam: regular rate/rhythm, normal heart sounds Respiratory Exam: normal breath sounds, lungs clear SpO2: 94 Gastrointestinal/Abdomen Exam: soft, normal bowel sounds Skin Exam: normal color Extremity Exam: normal range of motion Neurologic: well logging captain II-XII grossly intact, other Results Vital Signs: Vital Signs - 24 hr Temp Pulse Resp BP Pulse Ox 04/01/24 16:00 98.1 F 63 16 81/46 94 L 04/01/24 11:58 65 16 112/68 96 04/01/24 07:34 97.7 F 70 16 82/47 96 04/01/24 06:00 97.5 F 92 H 16 83/56 91 L 04/01/24 05:35 69 16 97 04/01/24 00:54 100 04/01/24 00:20 104 H 24 94 L 04/01/24 00:15 82 18 108/50 95 03/31/24 23:32 97.1 F 118 H 42 H 152/111 85 L Pain Assessment - Last Documented Pain Intensity 0 Intake and Output: Intake & Output 03/30/24 03/31/24 04/01/24 04/02/24 11:59 11:59 11:59 11:59 Intake Total 680 Balance 680 Weight 107.7 kg LAB: I have reviewed the Labs in [facility]. Radiology Exams: Radiology Procedures Category Date Time Status CHEST 1 VIEW (PORTABLE) Stat Exams 03/31/24 23:39 Completed CHEST WITHOUT CONTRAST [CT] Routine Exams 04/01/24 04:58 Completed Multi-Disciplinary Progress Notes: Multi-Disciplinary Progress Notes 04/01/24 15:43 Case Management Note by Nelia Wong NO DC PLANNING INITIATED AT THIS TIME- PATIENT WAITING ON BED AT HIGH LEVEL OF CARE Initialized on 12/13/24 15:43 - END OF NOTE Assessment & Plan (1) NSTEMI (non-ST elevated myocardial infarction) Current Visit: Yes Status: Acute Assessment & Plan: Patient with mild trop bump in the setting of flash pulm edema. He is not interested in going to [place] for [facility] over the weekend unless it is absolutely necessary. We've agreed to the following plan: Recheck trop this evening. If it remains only mildly elevated, will plan on d/c tomorrow with close follow up with this primary stencil typist as we will be approximately 2 days out from the event and low risk or arrhythmia or other ACS complication. If, however, it is rising exponentially, will reassess for [facility]. I suspect that the trop will remain low and he can be discharged tomorrow with close follow up. He agrees not to undertake any strenuous activity until we can definitively address his cardiac issues. As of now, he doesn't have room to increase any of his medications but perhaps by tomorrow, we could increase his entresto (he says his SBP is usually in the 110s; if his BP returns to that level, increasing entresto to 49/51 should be tolerated ok.) Code(s): I21.4 - NON-ST ELEVATION (NSTEMI) MYOCARDIAL INFARCTION - Encounter Encounter: "The entirety of this encounter was performed via Telemedicine using audio and visual "
[2024-04-01] MEDS: ZOCOR 20MG PO SCH (22:05)
[2024-04-01] MEDS: Lasix 40 MG/4 ML IV SCH (22:05)
--- NOTE | 2024-04-02 05:57 | PCM.DS ---
Discharge Summary Date of Admission: 04/01/24 04:01 Date of Discharge: 04/02/24 Admitting Physician: VAIBHAV LEE MD Consults: Consults on Case 04/01/24 17:39 Cardiology Consult [Notify Reserves Clerk of Admit] ROUTINE Primary Care Provider: VANDANA ROWE Allergies Allergies No Known Drug Allergies Allergy (Unverified 12/03/23 09:39) Hospital Summary - Hospital Course Hospital Course: is a 53 year old male with pmhx of CAD with CABG, CHF, hypertension, diabetes who presented to ED 03/31/24 with complaints of sudden onset of shortness of breath and productive cough with yellow sputum. 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 On exam patient was noted with diffuse coarse crackles and wheezing. He reports that since his CABG in March of last year he has multiple episodes of similar symptoms which required hospitalization. CT findings demonstrated multiple small innumerable ground-glass opacities with adjacent prominent vascular markings are noted involving bilateral lungs ; more of both upper lobes- possibility of alveolar hemorrhage/ pulmonary edema. Infective etiology appears less likely. Lab findings remarkable for up-trending troponins 0.769>0.701> <0.012. EKG findings with sinus tach with PVC but no acute ST elevations. Lab findings remarkable for white count of 10, lactate of 3.4, and BNP in 300s. Lactic acid now wnl. Patient initially placed on nonrebreather immediately followed by CPAP. Patient improved quickly and now on 2L NC. He was given lasix and Nitro in ED. Patient did have chemical stress test done at [facility] by Dr. Deng 03/31/24. Patient admitted for pulmonary edema, possible pneumonia, and CHF exacerbation. IP txt with diuresis - declines empiric abx for pneumonia. Patient initially requested to transfer to [facility] for higher level of care with pulmonology and cardiology. While waiting for bed patient had remained symptom free and was then wanting to be discharged. Cardiology consulted and discussed case with primary chemical engineering technologist Dr. Deng who reported that MPI 03/31/24 showed reversible ischemia in the LAD territory and LHC is needed to further evaluate. He said if he goes home over the weekend, he definitely needs to keep an appointment he made for him this upcoming Thursday but also suggested LHC at [place] as a possibility over the weekend. Patient has declined transfer obtained to [facility] and [facility]. He is adamant about going home today with follow up Thursday. Cardiology has recommended discharge today after repeat troponin remains mildly elevated and now has been 48 hours with low risk of arrythmia or other ACS complication. Patient agrees not to undertake strenuous activity until follow up with Cardiology on Thursday. Appt scheduled with Dr. Deng Thursday at 1:00 p.m. Dyspnea has completely resolved, lungs clear. No further medication changes recommended by cardiology. Patient advised to return to ED if symptoms return. Discharge Note Latest Assessment & Plan I spent 35 minutes [id number] with the patient on the day of discharge performing discharge exam, discussing hospital stay and discharge instructions with patient and caregivers, preparation of discharge records, prescriptions & referral forms and addressing any questions/concerns the patient had as documented above. ASSESSMENT 1. Acute Hypoxemic Respiratory Failure 2. Possible Pneumonia 3. Possible Pulmonary Edema 4. Non-ST Elevation Myocardial Infarction 5. Hypertension 6. Hyperlipidemia 7. Chronic Kidney Disease 8. Coronary Artery Disease s/p CABG CHF exacerbation -no recent echo on file -Follows with Dr. Deng OP with recent -lasix 40 bid -CT demonstrated multiple small innumerable ground-glass opacities with adjacent prominent vascular markings are noted involving bilateral lungs ; more of both upper lobes- possibility of alveolar hemorrhage/ pulmonary edema. Infective etiology appears less likely -supplemental oxygen with goal spo2 > 92% Elevated Troponins -Uptrending -BNP elevated -Initial EKG with sinus tach with PVC but no acute ST elevations CAD -s/p CABG March of 2023 -Follows with Dr. Deng -continue home meds HTN -with episode of hypotension -monitor closely Type 2 DM -SSI -ADA diet -A1c PLAN 1. Currently on room air and feeling better 2. GGO on CT scan - atypical PNA vs. viral PNA vs. pulmonary edema 3. Empiric diuresis 4. Empiric Abx to cover atypicals 5. Viral panel negative 6. Trend troponins - Vitals & Intake/Output Vital Signs: Vital Signs Temperature 98.6 F 04/01/24 20:00 Pulse Rate 84 04/02/24 00:00 Respiratory Rate 16 04/01/24 20:53 Blood Pressure 88/51 04/01/24 20:00 O2 Sat by Pulse Oximetry 95 04/01/24 20:53 Intake & Output: Intake & Output 03/30/24 03/31/24 04/01/24 04/02/24 11:59 11:59 11:59 11:59 Intake Total 680 Balance 680 Weight 107.7 kg - Lab Result Diagrams: 04/01/24 04:11 04/01/24 04:11 Lab Results-Last 24 Hrs: Lab Results-Last 24 Hours 04/01/24 04/01/24 04/01/24 Range/Units 04:11 04:11 07:29 WBC 10.5 H (4.23-9.07) x10^3/uL RBC 5.14 (4.63-6.08) x10^6/uL Hgb 12.9 L (13.7-17.5) g/dL Hct 42.7 (40.1-51.0) % MCV 83.1 (79.0-92.2) fL MCH 25.1 L (25.7-32.2) pg MCHC 30.2 L (32.3-36.5) g/dL RDW 16.5 H (11.6-14.4) % Plt Count 166 (163-337) x10^3/uL Gran % 76.2 H (34.0-67.9) % Immature Gran % (Auto) 0.4 (0.001-0.429) % Nucleat RBC Rel Count 0.0 (0.00-0.2) % Eos # (Auto) 0.21 (0.04-0.54) x10^3/uL Immature Gran # (Auto) 0.04 H (0.001-0.031) x10^3u/L Absolute Lymphs (auto) 1.33 (1.32-3.57) x10^3/uL Absolute Monos (auto) 0.86 H (0.30-0.82) x10^3/uL Absolute Nucleated RBC 0.00 (0.00-0.012) x10^3u/L Lymphocytes % 12.7 L (21.8-53.1) % Monocytes % 8.2 (5.3-12.2) % Eosinophils % 2.0 (0.8-7.0) % Basophils % 0.5 (0.2-1.2) % Absolute Granulocytes 7.97 H (1.78-5.38) x10^3/uL Basophils # 0.05 (0.01-0.08) x10^3/uL Sodium 138 (135-145) mmol/L Potassium 3.9 (3.5-5.1) mmol/L Chloride 102 (98-107) mmol/L Carbon Dioxide 19 L (22-30) mmol/L Anion Gap 21.2 H (5-15) MEQ/L BUN 22 H (9-20) mg/dL Creatinine 1.25 (0.66-1.25) mg/dL Estimated GFR 68.0 ML/MIN Glucose 253 H (74-106) mg/dL POC Glucometer (74 to 106) mg/dL Lactic Acid (0.4-2.0) Calcium 8.9 (8.4-10.2) mg/dL Total Bilirubin 0.50 (0.2-1.3) mg/dL AST 39 (17-59) U/L ALT 26 (0-50) U/L Alkaline Phosphatase 116 (38-126) U/L Troponin I 0.769 H* (0.000-0.033) ng/mL Serum Total Protein 8.3 H (6.3-8.2) g/dL Albumin 4.7 (3.5-5.0) g/dL 04/01/24 04/01/24 04/01/24 Range/Units 07:35 11:48 16:42 WBC (4.23-9.07) x10^3/uL RBC (4.63-6.08) x10^6/uL Hgb (13.7-17.5) g/dL Hct (40.1-51.0) % MCV (79.0-92.2) fL MCH (25.7-32.2) pg MCHC (32.3-36.5) g/dL RDW (11.6-14.4) % Plt Count (163-337) x10^3/uL Gran % (34.0-67.9) % Immature Gran % (Auto) (0.001-0.429) % Nucleat RBC Rel Count (0.00-0.2) % Eos # (Auto) (0.04-0.54) x10^3/uL Immature Gran # (Auto) (0.001-0.031) x10^3u/L Absolute Lymphs (auto) (1.32-3.57) x10^3/uL Absolute Monos (auto) (0.30-0.82) x10^3/uL Absolute Nucleated RBC (0.00-0.012) x10^3u/L Lymphocytes % (21.8-53.1) % Monocytes % (5.3-12.2) % Eosinophils % (0.8-7.0) % Basophils % (0.2-1.2) % Absolute Granulocytes (1.78-5.38) x10^3/uL Basophils # (0.01-0.08) x10^3/uL Sodium (135-145) mmol/L Potassium (3.5-5.1) mmol/L Chloride (98-107) mmol/L Carbon Dioxide (22-30) mmol/L Anion Gap (5-15) MEQ/L BUN (9-20) mg/dL Creatinine (0.66-1.25) mg/dL Estimated GFR ML/MIN Glucose (74-106) mg/dL POC Glucometer 131 H 143 H (74 to 106) mg/dL Lactic Acid 1.2 (0.4-2.0) Calcium (8.4-10.2) mg/dL Total Bilirubin (0.2-1.3) mg/dL AST (17-59) U/L ALT (0-50) U/L Alkaline Phosphatase (38-126) U/L Troponin I (0.000-0.033) ng/mL Serum Total Protein (6.3-8.2) g/dL Albumin (3.5-5.0) g/dL 04/01/24 04/01/24 Range/Units 19:56 22:00 WBC (4.23-9.07) x10^3/uL RBC (4.63-6.08) x10^6/uL Hgb (13.7-17.5) g/dL Hct (40.1-51.0) % MCV (79.0-92.2) fL MCH (25.7-32.2) pg MCHC (32.3-36.5) g/dL RDW (11.6-14.4) % Plt Count (163-337) x10^3/uL Gran % (34.0-67.9) % Immature Gran % (Auto) (0.001-0.429) % Nucleat RBC Rel Count (0.00-0.2) % Eos # (Auto) (0.04-0.54) x10^3/uL Immature Gran # (Auto) (0.001-0.031) x10^3u/L Absolute Lymphs (auto) (1.32-3.57) x10^3/uL Absolute Monos (auto) (0.30-0.82) x10^3/uL Absolute Nucleated RBC (0.00-0.012) x10^3u/L Lymphocytes % (21.8-53.1) % Monocytes % (5.3-12.2) % Eosinophils % (0.8-7.0) % Basophils % (0.2-1.2) % Absolute Granulocytes (1.78-5.38) x10^3/uL Basophils # (0.01-0.08) x10^3/uL Sodium (135-145) mmol/L Potassium (3.5-5.1) mmol/L Chloride (98-107) mmol/L Carbon Dioxide (22-30) mmol/L Anion Gap (5-15) MEQ/L BUN (9-20) mg/dL Creatinine (0.66-1.25) mg/dL Estimated GFR ML/MIN Glucose (74-106) mg/dL POC Glucometer 134 H (74 to 106) mg/dL Lactic Acid (0.4-2.0) Calcium (8.4-10.2) mg/dL Total Bilirubin (0.2-1.3) mg/dL AST (17-59) U/L ALT (0-50) U/L Alkaline Phosphatase (38-126) U/L Troponin I 0.271 H* (0.000-0.033) ng/mL Serum Total Protein (6.3-8.2) g/dL Albumin (3.5-5.0) g/dL Micro Results-Entire Visit: Accuchecks Date 04/01/24 Date 04/01/24 Date 04/01/24 Time 21:30 Time 16:44 Time 11:58 - Radiology Exams Ordered Rad Exams-Entire Visit: Radiology Procedures Category Date Time Status CHEST 1 VIEW (PORTABLE) Stat Exams 03/31/24 23:39 Completed CHEST WITHOUT CONTRAST [CT] Routine Exams 04/01/24 04:58 Completed - Procedures and Test Procedures and Tests throughout Hospitalization: Therapy Orders & Screens 03/31/24 23:55 BiPap/CPAP STAT Comment: 04/01/24 01:10 Respiratory Therapy Consult ONCE Comment: Reason For Exam: 04/01/24 04:38 Oxygen Nasal Cannula 2 lpm Comment: Respiratory Therapy Assessment DAILY Comment: 04/01/24 06:16 EKG ROUTINE Comment: 04/01/24 08:23 EKG ONCE Comment: Diagnosis: exacerb CHF, resp failure, Pneumonia Discharge Exam General Appearance: no apparent distress Neurologic Exam: alert, oriented x 3, cooperative Eye Exam: PERRL Ears, Nose, Throat Exam: normal ENT inspection Neck Exam: normal inspection Respiratory Exam: normal breath sounds, lungs clear Cardiovascular Exam: regular rate/rhythm, normal heart sounds Gastrointestinal/Abdomen Exam: soft, normal bowel sounds Male Genitalia Exam: deferred Rectal Exam: deferred Back Exam: normal inspection Extremity Exam: normal inspection Skin Exam: normal color Final Diagnosis/Problem List - Final Discharge Diagnosis/Problem (1) Acute exacerbation of congestive heart failure Current Visit: Yes Status: Acute Code(s): I50.9 - HEART FAILURE, UNSPECIFIED (2) Acute respiratory failure with hypoxia Current Visit: Yes Status: Acute Code(s): J96.01 - ACUTE RESPIRATORY FAILURE WITH HYPOXIA (3) CAD (coronary artery disease) Current Visit: Yes Status: Chronic Code(s): I25.10 - ATHSCL HEART DISEASE OF [place] CORONARY ARTERY W/O ANG PCTRS (4) Type 2 diabetes mellitus Current Visit: Yes Status: Chronic (5) HTN (hypertension) Current Visit: Yes Status: Chronic Code(s): I10 - ESSENTIAL (PRIMARY) HYPERTENSION (6) NSTEMI (non-ST elevated myocardial infarction) Current Visit: Yes Status: Acute Code(s): I21.4 - NON-ST ELEVATION (NSTEMI) MYOCARDIAL INFARCTION (7) Pneumonia Current Visit: Yes Status: Acute Code(s): J18.9 - PNEUMONIA, UNSPECIFIED ORGANISM - Discharge Disposition: Home, Self-Care Condition: Fair Prescriptions: Continue Sacubitril/Valsartan [Entresto 24 mg-26 mg Tablet] 1 tab PO BID Metoprolol Succinate 50 mg [Toprol Xl 50 MG] 1 tab PO DAILY Metformin HCl [Metformin ER Osmotic] 1 tab PO BID Empagliflozin [Jardiance] 25 mg PO DAILY Atorvastatin Calcium [Lipitor 20MG Tablet] 1 tab PO HS Aspirin EC 81 mg [Ecotrin 81 mg] 1 tab PO DAILY Potassium Chloride [Klor-Con 10] 1 tab PO DAILY Discontinued Furosemide 40 mg [Lasix 40 MG] 1 tab PO DAILY Follow up with: BERTHA DENG [CONSULTING PHYSICIAN] - 04/04/24 1:00 pm VANDANA ROWE MD [Primary Care Provider] -
[2024-04-02 07:52] VITALS: BP 102/54; PULSE 78; RESP 18; TEMP 97.1; O2SAT 95
== END 2024-04-02 09:19 | disposition home or self-care (01) ==
LOC: ED 23:15 → MED SURG 04-01 04:01
PROVIDERS: ADMIT Internal Medicine Critical Care Medicine; ATTEND Internal Medicine Critical Care Medicine
DX: I11.0 Hypertensive heart disease with heart failure (principal); I50.9 Heart failure, unspecified; J96.01 Acute respiratory failure with hypoxia; I25.10 Atherosclerotic heart disease of native coronary artery without angina pectoris; E11.9 Type 2 diabetes mellitus without complications; R60.0 Localized edema; J18.9 Pneumonia, unspecified organism; I21.4 Non-ST elevation (NSTEMI) myocardial infarction; Z95.0 Presence of cardiac pacemaker; Z79.899 Other long term (current) drug therapy
CPT/HCPCS: 0241U; 36415; 71045; 71250; 80053; 82947; 83605; 83735; 83880; 84484; 85025; 87040; 93005; 93041; 93268; 94002; 94640; 94760; 96365; 96372; 96374; 96375; 99291; G0378; Q3014; 99285; J0456; J0696; J1940; J2405; A9270-GY

== ENCOUNTER 2024-08-08 00:50 | Emergency (ER) | payer OTHER ==
[2024-08-08] MEDS ORDERED: NITRO-BID 2% UD PACKETS ONE (00:56)
[2024-08-08] MEDS ORDERED: Lasix 40 MG/4 ML ONE (00:56)
--- NOTE | 2024-08-08 01:04 | ERPHSYRPT ---
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 Patient has history of flash pulmonary edema and I have personally seen him few times with similar episodes where patient goes into CHF exacerbation quickly if he is exerting will or harder than usual. Patient reports chest tightness pressure but no pain. Denies any fever chills but does have a sudden onset frothy mucus producing cough. Patient has loud crackles bilaterally, placed on a nonrebreather followed by BiPAP and Nitropaste applied and given 40 mg IV Lasix. Allergies/Adverse Reactions: No Known Drug Allergies Allergy (Unverified 12/03/23 09:39) Home Medications: Aspirin EC 81 mg [Ecotrin 81 mg] 1 tab PO DAILY 12/03/23 [History] Atorvastatin Calcium [Lipitor 20MG Tablet] 1 tab PO HS 12/03/23 [History] Empagliflozin [Jardiance] 25 mg PO DAILY 12/03/23 [History] Metformin HCl [Metformin ER Osmotic] 1 tab PO BID 12/03/23 [History] Metoprolol Succinate 50 mg [Toprol Xl 50 MG] 1 tab PO DAILY 12/03/23 [History] Potassium Chloride [Klor-Con 10] 1 tab PO DAILY 12/03/23 [History] Sacubitril/Valsartan [Entresto 24 mg-26 mg Tablet] 1 tab PO BID 12/03/23 [History] Furosemide 40 mg [Lasix 40 MG] 40 mg PO DAILY 04/02/24 [History] Hx Tetanus, Diphtheria Vaccination/Date Given: Yes Hx Influenza Vaccination/Date Given: Yes Hx Pneumococcal Vaccination/Date Given: No Travel Risk - Emerging Infectious Disease Are you exhibiting symptoms associated with any current EIDs: No Symptoms: Shortness of Breath, Vomitting - Review of Systems Constitutional: No Symptoms Ears, Nose, & Throat: No Symptoms Respiratory: Cough, Dyspnea, Dyspnea on Exertion (BARRETT) Cardiac: Edema Abdominal/Gastrointestinal: No Symptoms Genitourinary Symptoms: No Symptoms Musculoskeletal: No Symptoms Neurological: No Symptoms Endocrine: No Symptoms Hematologic/Lymphatic: No Symptoms Immunological/Allergic: No Symptoms - Past Medical History Pertinent Past Medical History: Yes Neurological History: No Pertinent History ENT History: No Pertinent History Cardiac History: High Cholesterol, Hypertension, Myocardial Infarction ([place]) Respiratory History: No Pertinent History Endocrine Medical History: Diabetes Type II Musculoskeletal History: No Pertinent History GI Medical History: No Pertinent History History: No Pertinent History Psycho-Social History: No Pertinent History Male Reproductive Disorders: No Pertinent History - Past Surgical History Past Surgical History: Yes Neuro Surgical History: No Pertinent History Cardiac: CABG Respiratory: No Pertinent History Gastrointestinal: No Pertinent History Genitourinary: No Pertinent History Musculoskeletal: No Pertinent History Male Surgical History: No Pertinent History Other Surgical History: 5 heart bypass in 2022 Significant Family History: no pertinent family hx - Social History Smoking Status: Never smoker Exposure to second hand smoke: No Drug Use: none - Social Determinants of Health Will the patient participate in the screening: Yes Do you worry about a steady place to live?: No In the past 12 months,have you had to go without utilities?: No Transportation Issues: No Has anyone in your support network made you feel unsafe?: No Have you or anyone in your house had to go w/o enough food: No - Nursing Vital Signs Nursing Vital Signs: Initial Vital Signs Temperature 98.2 F 08/08/24 00:50 Pulse Rate 122 H 08/08/24 00:50 Respiratory Rate 24 08/08/24 00:50 Blood Pressure 173/105 08/08/24 00:50 O2 Sat by Pulse Oximetry 94 L 08/08/24 00:50 Pain Scale Pain Intensity 0 - Physical Exam General Appearance: no apparent distress Eye Exam: PERRL/EOMI Ears, Nose, Throat Exam: hearing grossly normal Neck Exam: normal inspection, non-tender, supple, full range of motion Respiratory Exam: respiratory distress, accessory muscle use, crackles/rales, rhonchi, wheezing Cardiovascular/Chest Exam: normal heart sounds, regular rate/rhythm, edema Abdominal/Gastrointestinal Exam: soft, normal bowel sounds Extremity Exam: non-tender, normal range of motion Neurologic Exam: alert, oriented x 3, cooperative Skin Exam: normal color SpO2 Interpretation: O2 applied SpO2: 98 O2 Delivery: BiPap - Course EKG Interpreted by Me: RATE (103), Sinus Tach, NORMAL AXIS, NORMAL INTERVALS, Non-specific ST Changes, Other (Nonspecific T wave changes) Ordered Tests: Medication Summary Discontinued Medications Generic Name Dose Route Start Last Admin Trade Name Willa PRN Reason Stop Dose Admin Azithromycin Confirm 08/08/24 01:50 Azithromycin Inj Administered 08/08/24 01:51 Dose 500 mg IV .STK-MED ONE Furosemide Confirm 08/08/24 00:56 Furosemide 40 Mg/4 Ml Vial Administered 08/08/24 00:57 Dose 40 mg .ROUTE .STK-MED ONE Furosemide 40 mg 08/08/24 01:00 08/08/24 01:17 Furosemide 40 Mg/4 Ml Vial IV 08/08/24 01:01 40 mg STAT ONE Administration Azithromycin 500 mg/ Sodium 250 mls @ 250 mls/hr 08/08/24 01:45 08/08/24 02:59 Chloride IV 08/08/24 02:44 Infused STAT STA Infusion Ceftriaxone Sodium 2 gm in 100 mls @ 200 mls/hr 08/08/24 01:45 08/08/24 02:59 Rocephin 2 Gm/100 Ml Nacl IV 08/08/24 02:14 Infused STAT ONE Infusion Sodium Chloride Confirm 08/08/24 01:51 Sodium Chloride 0.9% 250 Ml Administered 08/08/24 01:52 Dose 250 mls @ ud IV .STK-MED ONE Ceftriaxone Sodium Confirm 08/08/24 01:51 Rocephin 2 Gm/100 Ml Nacl Administered 08/08/24 01:52 Dose 2 gm in 100 mls @ ud IV .STK-MED ONE Nitroglycerin Confirm 08/08/24 00:56 Nitroglycerin 1 Gm Packet Administered 08/08/24 00:57 Dose 1 gm .ROUTE .STK-MED ONE Nitroglycerin 1 gm 08/08/24 01:00 08/08/24 01:17 Nitroglycerin 1 Gm Packet TOP 08/08/24 01:01 1 gm STAT ONE Administration Lab/Rad Data: Laboratory Result Diagrams 08/08/24 01:10 08/08/24 01:10 Laboratory Results 08/08/24 08/08/24 08/08/24 Range/Units 02:10 01:10 01:10 WBC (4.23-9.07) x10^3/uL RBC (4.63-6.08) x10^6/uL Hgb (13.7-17.5) g/dL Hct (40.1-51.0) % MCV (79.0-92.2) fL MCH (25.7-32.2) pg MCHC (32.3-36.5) g/dL RDW (11.6-14.4) % Plt Count (163-337) x10^3/uL MPV (9.4-12.4) fL Gran % (34.0-67.9) % Immature Gran % (Auto) (0.001-0.429) % Nucleat RBC Rel Count (0.00-0.2) % Eos # (Auto) (0.04-0.54) x10^3/uL Immature Gran # (Auto) (0.001-0.031) x10^3u/L Absolute Lymphs (auto) (1.32-3.57) x10^3/uL Absolute Monos (auto) (0.30-0.82) x10^3/uL Absolute Nucleated RBC (0.00-0.012) x10^3u/L Lymphocytes % (21.8-53.1) % Monocytes % (5.3-12.2) % Eosinophils % (0.8-7.0) % Basophils % (0.2-1.2) % Absolute Granulocytes (1.78-5.38) x10^3/uL Basophils # (0.01-0.08) x10^3/uL Puncture Site pCO2 (35-45) mmHg pO2 (75-100) mmHg Base Excess (-2.0-2.0) O2 Saturation (94-100) g/dF ABG pH (7.35-7.45) ABG HCO3 (22-28) ABG O2 Sat (Measured) (95-100) % Jose Test A-a Gradient a/A Ratio Hemoglobin Carboxyhemoglobin (0.0-6.9) % THgb Methemoglobin (1.4-1.5) % Potassium 4.0 (3.5-5.1) Temperature C POC O2 Flow Rate % Sodium 139 (135-145) mmol/L Chloride 100 (98-107) mmol/L Carbon Dioxide 20 L (22-30) mmol/L Anion Gap 23.2 H (5-15) MEQ/L BUN 29 H (9-20) mg/dL Creatinine 1.94 H (0.66-1.25) mg/dL Estimated GFR 39.9 ML/MIN Glucose 323 H (74-106) mg/dL POC Glucometer 259 H (74 to 106) mg/dL Lactic Acid (0.4-2.0) Calcium 8.8 (8.4-10.2) mg/dL Magnesium 2.2 (1.6-2.3) mg/dL Total Bilirubin 0.40 (0.2-1.3) mg/dL AST 40 (17-59) U/L ALT 37 (0-50) U/L Alkaline Phosphatase 140 H (38-126) U/L Troponin I 0.014 (0.000-0.033) ng/mL NT-Pro-B Natriuret Pep 424 (<300) pg/mL Serum Total Protein 7.6 (6.3-8.2) g/dL Albumin 4.6 (3.5-5.0) g/dL 08/08/24 08/08/24 Range/Units 01:10 01:00 WBC 12.7 H (4.23-9.07) x10^3/uL RBC 6.10 H (4.63-6.08) x10^6/uL Hgb 14.2 (13.7-17.5) g/dL Hct 47.5 (40.1-51.0) % MCV 77.9 L (79.0-92.2) fL MCH 23.3 L (25.7-32.2) pg MCHC 29.9 L (32.3-36.5) g/dL RDW 17.3 H (11.6-14.4) % Plt Count 231 (163-337) x10^3/uL MPV 12.3 (9.4-12.4) fL Gran % 48.9 (34.0-67.9) % Immature Gran % (Auto) 0.6 H (0.001-0.429) % Nucleat RBC Rel Count 0.0 (0.00-0.2) % Eos # (Auto) 0.67 H (0.04-0.54) x10^3/uL Immature Gran # (Auto) 0.07 H (0.001-0.031) x10^3u/L Absolute Lymphs (auto) 4.14 H (1.32-3.57) x10^3/uL Absolute Monos (auto) 1.46 H (0.30-0.82) x10^3/uL Absolute Nucleated RBC 0.00 (0.00-0.012) x10^3u/L Lymphocytes % 32.6 (21.8-53.1) % Monocytes % 11.5 (5.3-12.2) % Eosinophils % 5.3 (0.8-7.0) % Basophils % 1.1 (0.2-1.2) % Absolute Granulocytes 6.21 H (1.78-5.38) x10^3/uL Basophils # 0.14 H (0.01-0.08) x10^3/uL Puncture Site LRA pCO2 45 (35-45) mmHg pO2 118 H (75-100) mmHg Base Excess -5.7 L (-2.0-2.0) O2 Saturation 97.5 (94-100) g/dF ABG pH 7.28 L (7.35-7.45) ABG HCO3 21.1 L (22-28) ABG O2 Sat (Measured) 98.9 (95-100) % Jose Test YES A-a Gradient 539 a/A Ratio 0.18 Hemoglobin 15.0 Carboxyhemoglobin 1.1 (0.0-6.9) % THgb Methemoglobin 0.4 L (1.4-1.5) % Potassium 4.2 (3.5-5.1) Temperature 37.0 C POC O2 Flow Rate 100 % Sodium (135-145) mmol/L Chloride (98-107) mmol/L Carbon Dioxide (22-30) mmol/L Anion Gap (5-15) MEQ/L BUN (9-20) mg/dL Creatinine (0.66-1.25) mg/dL Estimated GFR ML/MIN Glucose (74-106) mg/dL POC Glucometer (74 to 106) mg/dL Lactic Acid 4.4 H (0.4-2.0) Calcium (8.4-10.2) mg/dL Magnesium (1.6-2.3) mg/dL Total Bilirubin (0.2-1.3) mg/dL AST (17-59) U/L ALT (0-50) U/L Alkaline Phosphatase (38-126) U/L Troponin I (0.000-0.033) ng/mL NT-Pro-B Natriuret Pep (<300) pg/mL Serum Total Protein (6.3-8.2) g/dL Albumin (3.5-5.0) g/dL - Progress Progress: improved, re-examined Air Movement: fair Progress Note: 08/08/24 01:54 54 years old with multiple medical problems including CAD with CABG, CHF, diabetes mellitus is evaluated in the ER for sudden worsening shortness of breath with cough, chest tightness and frothy sputum. Patient was in moderate distress, initially placed on nonrebreather followed by BiPAP with improved work of breathing. Nitropaste applied and given 40 mg IV Lasix. Chest x-ray showed bilateral airspace disease/opacities with congestion and given a dose of antibiotics. Workup showed white count 10, chemistries with glucose of 323, gap of 19 and a bicarb of 20 but has a pH of 7.28. Patient also has a worsening of renal function with a baseline creatinine of 1 but today is 1.94. Initial troponins are negative. Repeat glucose is 259. Will hold off on an insulin I have offered him admission for CHF exacerbation and pneumonia but patient preferred to go to [facility] where he has his cardiology. I have discussed with Dr. Clarence rivera, reviewed history, workup and agreed with transfer. Complexity of problems addressed: High acuity Complexity of data reviewed/analyzed: Moderate Risk of complication: High risk Blood Culture(s) Obtained: Yes Antibiotics given: Yes Discussed with DrMaria Guadalupe: Other (Dr. Clarence Francois [facility] ER) Will see patient in: ED Counseled pt/family regarding: lab results, diagnosis, need for follow-up, rad results Medical Desision Making - Discussion of managment Care discussed with:: on-call "doc" (Dr. Clarence Francois [facility]) Reviewed:: Test results Agreed on:: Treatment plan Will see patient: in ED - Diagnostic Testing Diagnostic test were ordered, analyzed, and reviewed by me: Yes Radiological Interpretation: Interpreted by me, Reviewed by me - Risk of complications The pt has a mod risk of morbidity or mortality based on: Need for prescription drug management The pt has a high risk of morbidity or mortality based on: Decision regarding hospitilization or escalation of hosp level of care - Departure Departure Disposition: Transfer Clinical Impression: Acute exacerbation of congestive heart failure, Acute respiratory failure with hypoxia, Pneumonia Condition: Good Critical Care Time: Yes Critical Care Time(excluding separately billable procedures): Critical 30-74 mins Referrals: VANDANA ROWE MD [Primary Care Provider, [facility]] - Follow up/PCP as directed Instructions: Heart Failure
[2024-08-08] MEDS: NITRO-BID 2% UD PACKETS TOP ONE (01:17)
[2024-08-08] MEDS: Lasix 40 MG/4 ML IV ONE (01:17)
[2024-08-08 01:20] LABS: Absolute Neutrophil Ct (ANC) 6.21 x10^3/uL (1.78-5.38); BASOPHIL % 1.1 % (0.2-1.2); Basophil (Absolute #) 0.14 x10^3/uL (0.01-0.08); Eosinophil % 5.3 % (0.8-7.0); Eosinophil (Absolute #) 0.67 x10^3/uL (0.04-0.54); Hematocrit 47.5 % (40.1-51.0); Hemoglobin 14.2 g/dL (13.7-17.5); IMMATURE GRAN # 0.07 x10^3u/L (0.001-0.031); IMMATURE GRAN % 0.6 % (0.001-0.429); Lymphocyte (Absolute #) 4.14 x10^3/uL (1.32-3.57); Lymphocytes % 32.6 % (21.8-53.1); Mean Cell Volume 77.9 fL (79.0-92.2); Mean Corpuscular Hemoglobin 23.3 pg (25.7-32.2); Mean Corpuscular Hgb Concent. 29.9 g/dL (32.3-36.5); Mean Platelet Volume 12.3 fL (9.4-12.4); Monocyte (Absolute #) 1.46 x10^3/uL (0.30-0.82); Monocytes % 11.5 % (5.3-12.2); Neutrophil % 48.9 % (34.0-67.9); Platelet Count 231 x10^3/uL (163-337); Red Cell Distribution Width 17.3 % (11.6-14.4); White Blood Count 12.7 x10^3/uL (4.23-9.07)
[2024-08-08 01:22] LABS: A-aADO2 539; ABG POTASSIUM 4.2 (3.5-5.1); ABG SITE LRA; ARTERIAL BLD GAS O2 SATURATION 98.9 % (95-100); ARTERIAL BLOOD GAS BASE EXCESS -5.7 (-2.0-2.0); ARTERIAL BLOOD GAS FIO2 100 %; ARTERIAL BLOOD GAS PCO2 45 mmHg (35-45); ARTERIAL BLOOD GAS PO2 118 mmHg (75-100); ARTERIAL BLOOD GAS pH 7.28 (7.35-7.45); CARBOXYHEMOGLOBIN 1.1 % THgb (0.0-6.9); HCO3- 21.1 (22-28); HGB O2 SAT 97.5 g/dF (94-100); Lactic Acid 4.4 (0.4-2.0); Methhemoglobin 0.4 % (1.4-1.5); paO2 pAO1 0.18
[2024-08-08 01:23] LABS: ALLEN TEST OK? YES
[2024-08-08 01:40] LABS: ALBUMIN 4.6 g/dL (3.5-5.0); ANION GAP 23.2 MEQ/L (5-15); BILIRUBIN,TOTAL 0.4 mg/dL (0.2-1.3); Calcium 8.8 mg/dL (8.4-10.2); Creatinine 1 1.94 mg/dL (0.66-1.25); EST GLOMERULAR FILTRATION RATE 39.9 ML/MIN; MAGNESIUM 2.2 mg/dL (1.6-2.3); TROPONIN 0.014 ng/mL (0.000-0.033); Total Protein 7.6 g/dL (6.3-8.2)
[2024-08-08] MEDS ORDERED: ZITHROMAX IV IV ONE (01:50)
[2024-08-08] MEDS ORDERED: ROCEPHIN 2 GM/100 ML NACL 2 GM/100 ML IVPB IV ONE (01:51)
[2024-08-08] MEDS ORDERED: Sodium Chloride 0.9% 250 ML 250 ML IV ONE (01:51)
[2024-08-08] MEDS: ROCEPHIN 2 GM/100 ML NACL 2 GM/100 ML IVPB IV ONE (01:52)
[2024-08-08] MEDS: ZITHROMAX IV*** 500 MG in Sodium Chloride 0.9% 250 ML 250 ML IV STA (01:53)
[2024-08-08 02:29] VITALS: TEMP 98.2
[2024-08-08 02:54] VITALS: BP 83/49; PULSE 92; RESP 27
--- NOTE | 2024-08-08 03:43 | XRAY ---
CLINICAL HISTORY: sob COMPARISON: Prior CT 04/01/2024. TECHNIQUE: Radiograph of the chest was acquired in Anteroposterioir (AP) projection. FINDINGS: Sternal sutures are noted. Still seen multiple bilateral, diffusely scattered, asymmetrical, discrete opacities are noted involving bilateral lung reyes, more evident at both upper lobes. Linear opacities noted in the left peripheral lower zone, likely subsegmental atelectasis. Blunting of the right costophrenic angle is noted, suggestive of pleural effusion. Left costophrenic angle is normal. Apparent cardiomegaly is noted. No acute osseous abnormality. IMPRESSION: 1. Multiple bilateral, diffusely scattered, asymmetrical, discrete opacities are noted involving bilateral lung reyes, more evident at both upper lobes; Hypersensitivity pneumonitis is suggested ( Acute / sub-acute stage ). Stable. 2. Linear opacity is noted in the left peripheral lower zone, likely subsegmental atelectasis. Stable. 3. Blunting of the right costophrenic angle is noted, suggestive of pleural effusion. More prominent on current examination. 4. Apparent cardiomegaly is noted. Stable. 5. In comparison to last CT study which revealed bilateral ill defined centrilobular ground glass opacity nodules more evident at both upper lung lobes ; Hypersensitivity pneumonitis is suggested . Electronically Signed by: Laura Triana MD. (08/08/2024 03:39:07 EDT)
[2024-08-11 08:11] VITALS: O2SAT 98
== END 2024-08-08 03:00 | disposition short-term general hospital (02) ==
LOC: ED 00:50
DX: J18.9 Pneumonia, unspecified organism (principal); J96.01 Acute respiratory failure with hypoxia; I11.0 Hypertensive heart disease with heart failure; I50.9 Heart failure, unspecified; E11.9 Type 2 diabetes mellitus without complications; E78.5 Hyperlipidemia, unspecified; Z79.84 Long term (current) use of oral hypoglycemic drugs; Z79.899 Other long term (current) drug therapy
CPT/HCPCS: 36415; 36600; 71045; 80053; 82375; 82803; 82947; 83605; 83735; 83880; 84484; 85025; 93005; 96365; 96368; 96374; 96375; 99285; 99291; J0456; J0696; J1938; A9270-GY